=== PATIENT | male | born 1980 | race African-American/Black ===

== ENCOUNTER 2016-11-20 08:32 | Emergency (ER) | payer MEDICARE, MEDICAID ==
[~2016-11-20] VITALS: Ht 180.3 cm; Wt 85.3 kg
[~2016-11-20 08:32] MED LIST: ADVAIR 100/501 PUFF1 INH; ALBUTEROL SULF8.5 GM INH; AZITHROMYCIN250 MG ORAL; PREDNISONE20 MG ORAL; PROAIR HFA8.5 GM INH
[2016-11-20] MEDS ORDERED: IBUPROFEN800 MG ORAL (09:15)
[2016-11-20] MEDS ORDERED: ACETAMINOPHEN-1 EAC1 ORAL (09:15)
[2016-11-20 09:25] VITALS: BP 155/95
--- NOTE | 2016-11-20 09:33 | Emergency Room Report ---
History of Present Illness General Chief Complaint: Sore Throat Source: Patient Present Illness HPI 36YOM with 5 days dry cough, sore throat. +asthmatic. Using nebulizer as needed for cough with improvement. Denies chest pain, SOB, fever/chills. Denies painful swallowing, throat only hurts with coughing. Allergies: Coded Allergies: No Known Allergies (Unverified , 05/14/16) Patient History Past Medical History: asthma Past Surgical History: none Pertinent Family History: none Social History: Denies: alcohol use, drug use, smoking Immunizations: UTD Reviewed Nursing Documentation: PMH: Agreed, PSxH: Agreed Nursing Documentation-PMH Past Medical History: No History, Except For Hx Asthma: Yes Review of Systems All Other Systems: negative except mentioned in HPI Physical Exam Vital Signs Date Time Temp Pulse Resp B/P Pulse Ox O2 Delivery O2 Flow Rate FiO2 11/20/16 08:44 98.8 112 14 151/82 99 Room Air Sp02 EP Interpretation: reviewed, normal General Appearance: normal inspection, well appearing, no apparent distress, alert, GCS 15, non-toxic Head: normocephalic, atraumatic Eyes: bilateral eye EOMI, bilateral eye PERRL ENT: normal ENT inspection, hearing grossly normal, normal pharynx, no angioedema, normal voice, TMs + canals normal, uvula midline, other - No exudate or erythema Neck: normal inspection, full range of motion, supple, no bony tend Respiratory: normal inspection, lungs clear, normal breath sounds, no respiratory distress, no retraction, no wheezing Cardiovascular #1: regular rate, rhythm, no edema Gastrointestinal: normal inspection, normal bowel sounds, non tender, soft, no guarding, no hernia Genitourinary: no CVA tenderness Musculoskeletal: normal inspection, back normal, normal range of motion, Marylin' s Sign negative Neurologic: normal inspection, alert, oriented x3, responsive, telephone surveyor III-XII nml as tested, motor strength/tone normal, speech normal Psychiatric: normal inspection, judgement/insight normal, mood/affect normal Skin: normal inspection, normal color, no rash Medical Decision Making Diagnostic Impression: Primary Impression: Upper respiratory infection Qualified Codes: J06.9 - Acute upper respiratory infection, unspecified; B97.89 - Other viral agents as the cause of diseases classified elsewhere ER Course 36YOM with URI symptoms. VSS. Afebrile No obvious source of bacterial infection in oropharynx, ears, lungs, skin, abdomen on exam Well appearing Advised supportive treatment PMD followup DC home Understands to return for worsening symptoms - Use albuterol and T#3 as needed for cough, body aches, also Ibuprofen - Follow up with your primary care doctor in 2-3 days Last Vital Signs Date Time Temp Pulse Resp B/P Pulse Ox O2 Delivery O2 Flow Rate FiO2 11/20/16 08:44 98.8 112 14 151/82 99 Room Air Status: improved Disposition: HOME, SELF-CARE Condition: Improved Scripts Acetaminophen With Codeine (T#3) (TYLENOL #3 TAB*) Y Tab 1 TAB ORAL QHS Y for For Cough, #30 TAB Prov: JOYA SAENZ M.D. 11/20/16 Ibuprofen* (MOTRIN*) 800 Mg Tablet 800 MG ORAL THREE TIMES A DAY for For Pain, #30 TAB 0 Refills Prov: JOYA SAENZ M.D. 11/20/16 Referrals: NOT CHOSEN IPA/,REFERRING (PCP) Patient Instructions: Upper Respiratory Infection, Adult, Xxez-[id number] Additional Instructions: - Take ibuprofen every 8 hours as needed for sore thoat - Take Tylenol #3 at night for cough, pain, sleep JOYA SAENZ M.D. Nov 20, 2016 09:33
== END 2016-11-20 09:25 | disposition home or self-care (01) ==
LOC: EMR 09:12
DX: J06.9 Acute upper respiratory infection, unspecified (principal); J45.909 Unspecified asthma, uncomplicated
CPT/HCPCS: 99284

== ENCOUNTER 2016-11-26 08:33 | Emergency (ER) | payer MEDICARE, MEDICAID ==
[~2016-11-26] VITALS: Ht 177.8 cm; Wt 85.3 kg
[~2016-11-26 08:33] MED LIST changes: +ACETAMINOPHEN-1 EAC1 ORAL; +IBUPROFEN800 MG ORAL
--- NOTE | 2016-11-26 10:25 | Emergency Room Report ---
History of Present Illness General Chief Complaint: Pain Source: Patient, Medical Record Present Illness HPI This patient states that he has had a sore throat for about one week. He states that he has had pain in his right ear radiating to his right jaw. He denies fever or chills. He has had some coughing. He denies nausea or vomiting. He denies chest pain. He has no other complaints. Allergies: Coded Allergies: No Known Allergies (Unverified , 05/14/16) Patient History Past Medical History: see triage record, asthma Social History: Reports: smoking, Denies: alcohol use, drug use Reviewed Nursing Documentation: PMH: Agreed, PSxH: Agreed Nursing Documentation-PMH Past Medical History: No History, Except For Hx Asthma: Yes Review of Systems All Other Systems: negative except mentioned in HPI Physical Exam Vital Signs Date Time Temp Pulse Resp B/P Pulse Ox O2 Delivery O2 Flow Rate FiO2 11/26/16 08:44 98.4 73 16 148/93 97 Room Air Sp02 EP Interpretation: reviewed, normal General Appearance: no apparent distress, alert, GCS 15, non-toxic Head: normocephalic, atraumatic Eyes: bilateral eye PERRL, bilateral eye normal inspection ENT: hearing grossly normal, normal pharynx, no angioedema, normal voice, TMs + canals normal, uvula midline, moist mucus membranes Neck: full range of motion, supple/symm/no masses, other - Bilateral mild anterior CHET Respiratory: chest non-tender, lungs clear, normal breath sounds, speaking full sentences Cardiovascular #1: regular rate, rhythm, no edema Gastrointestinal: normal bowel sounds, non tender, soft, non-distended, no guarding, no rebound Rectal: deferred Musculoskeletal: back normal, gait/station normal, normal range of motion, non- tender Neurologic: alert, oriented x3, responsive, motor strength/tone normal, sensory intact, speech normal Psychiatric: judgement/insight normal, memory normal, mood/affect normal, no suicidal/homicidal ideation Skin: normal color, no rash, warm/dry, well hydrated Medical Decision Making Diagnostic Impression: Primary Impression: Upper respiratory infection Additional Impressions: Asthma exacerbation Lymphadenopathy, cervical ER Course This patient has a clinical presentation consistent with pharyngitis. Physical exam is consistent with a viral etiology. There is no evidence of peritonsillar abscess or deep neck abscess. There is no airway edema. Overall , this patient had a very benign examination. The patient only needs supportive care. The patient is instructed to get prpr-xez-rwofivy lozenges. Patient already has Motrin and acetaminophen. Patient has a history of asthma and has a terrible cough, although, it there is no wheezing on physical exam I will go ahead and give a burst of steroids. The patient states that he has a nebulizer machine complaining of albuterol at home. The patient was given return precautions and followup instructions. Chest X-Ray Diagnostic Results EP Interpretation: Yes Findings: no consolidation, no effusion, no pneumothorax, no acute cardiopulmonary disease Number of Views: 1 Last Vital Signs Date Time Temp Pulse Resp B/P Pulse Ox O2 Delivery O2 Flow Rate FiO2 11/26/16 08:44 98.4 73 16 148/93 97 Room Air Disposition: HOME, SELF-CARE Condition: Stable Referrals: NON PHYSICIAN (PCP) DAVID MELENDREZ D.O. Nov 26, 2016 10:25
[2016-11-26] MEDS ORDERED: PREDNISONE20 MG ORAL (10:26)
[2016-11-26 11:31] VITALS: BP 122/72
--- NOTE | 2016-11-26 12:10 | Diagnostic Imaging Report ---
Indication: COUGH Technique: One view of the chest Comparison: none Findings: Lungs and pleural spaces are clear. Heart size is normal. Impression: No acute process
== END 2016-11-26 11:33 | disposition home or self-care (01) ==
LOC: EMR 09:36
DX: R59.0 Localized enlarged lymph nodes (principal); J06.9 Acute upper respiratory infection, unspecified; J45.901 Unspecified asthma with (acute) exacerbation
CPT/HCPCS: 71010; 99283

== ENCOUNTER 2017-05-23 06:37 | Inpatient (IN) | payer MEDICARE, MEDICAID ==
[~2017-05-23] VITALS: Ht 180.3 cm; Wt 85.3 kg
--- NOTE | 2017-05-23 06:50 | Emergency Room Report ---
History of Present Illness General Chief Complaint: Dyspnea/Respdistress Source: Patient Present Illness HPI Patient presents with dyspnea wheezing. He has been ill for 3 weeks. He was seen Thursday at [facility] where a chest x-ray done at [facility] was ordered. He is coughing up white phlegm at this time. He's got short of breath and has some chest pain radiating to his right shoulder. His has been using an inhaler. He still is quite short of breath when he walks. This is one of the worst attacks he has had. He has never been admitted to the hospital here. He has used prednisone in the past. The patient denies any nausea vomiting diarrhea dysuria. No skin rashes. He still smokes. Allergies: Coded Allergies: No Known Allergies (Unverified , 05/14/16) Patient History Past Medical History: see triage record Social History: Reports: smoking Social History Narrative from home Reviewed Nursing Documentation: PMH: Agreed, PSxH: Agreed Nursing Documentation-PMH Hx Asthma: Yes Review of Systems All Other Systems: negative except mentioned in HPI Physical Exam Vital Signs Date Time Temp Pulse Resp B/P (MAP) Pulse Ox O2 Delivery O2 Flow Rate FiO2 05/23/17 06:39 99.1 116 22 160/111 88 Sp02 EP Interpretation: normal, abnormal - low as interpreted by me General Appearance: well appearing, GCS 15, mild distress, other Head: normocephalic Eyes: bilateral eye normal inspection, bilateral eye PERRL ENT: moist mucus membranes Neck: supple Respiratory: no retraction, wheezing, expiration, inspiration Cardiovascular #1: tachycardia Cardiovascular #2: 2+ radial (R) Gastrointestinal: normal inspection, normal bowel sounds, non tender, no mass, non-distended Musculoskeletal: back normal, gait/station normal, normal range of motion Neurologic: alert, oriented x3, motor strength/tone normal, DTRs symmetric, sensory intact Psychiatric: anxious Skin: normal inspection, warm/dry Procedures Critical Care Time Critical Care Time Total Critical Care Time: 60 min bedside evaluation and treatment excludes procedures (EKG). Reason for critical care: status asthmaticus, hypoxia Possible complications: hypotension, hypertension, PR, shock, arrhythmias, metabolic acidosis, end organ damage, respiratory failure. Interventions: albuterol, atrovent, solumedrol, levaquin, magnesium, epinephrine , repeat tx discussion with admitting MD Course: Patient with hypoxia and wheezing. Aggressive treatment with some improvement. Then some worsening. Epi and magnesium with repeated treatments with improvement again, but still hypoxia. Discussed with family. Discussed with admitting MD. Improved but still serious. Consultations: nursing staff, family, PMD, respiratory Performed by: Dr. Leal Tolerated well condition = serious Medical Decision Making Diagnostic Impression: Primary Impression: Status asthmaticus Qualified Codes: J45.52 - Severe persistent asthma with status asthmaticus Additional Impressions: Hypoxia Eosinophilia ER Course Patient presents with respiratory distress wheezing and hypoxia. Differential includes pneumonia, exacerbation of asthma, pulmonary embolus amongst others. Please evaluated with EKG, chest x-ray and labs. Blood cultures will be obtained. Also antibiotics will be started. Will be given Solu-Medrol and breathing treatments. His magnesium will be checked. CXR without infiltrate. EKG and labs unremarkable except for eosinphilia which suggests steroid responsiveness. Improved, but still wheezing. Family worried. Discussed expected course and cause with them. Worsened some. Pursed lip breathing and increased work. Epi and magnesium given. Needing more tx. Repeat albuterol ordered. (Consideration of BIPAP) Improved Admit OZ Dr. Ye. Dr. Ye examined the patient in the ED. Laboratory Tests Test 05/23/17 07:00 White Blood Count 11.1 K/UL (4.8-10.8) H Red Blood Count 4.70 M/UL (4.70-6.10) Hemoglobin 16.0 G/DL (14.2-18.0) Hematocrit 46.0 % (42.0-52.0) Mean Corpuscular Volume 98 FL (80-99) Mean Corpuscular Hemoglobin 34.1 PG (27.0-31.0) H Mean Corpuscular Hemoglobin Concent 34.8 G/DL (32.0-36.0) Red Cell Distribution Width 11.5 % (11.6-14.8) L Platelet Count 214 K/UL (150-450) Mean Platelet Volume 8.9 FL (6.5-10.1) Neutrophils (%) (Auto) 73.5 % (45.0-75.0) Lymphocytes (%) (Auto) 8.6 % (20.0-45.0) L Monocytes (%) (Auto) 9.4 % (1.0-10.0) Eosinophils (%) (Auto) 7.4 % (0.0-3.0) H Basophils (%) (Auto) 1.1 % (0.0-2.0) Prothrombin Time 10.1 SEC (9.30-11.50) Prothrombin Time INR 1.0 (0.9-1.1) PTT 30 SEC (23-33) Sodium Level 140 mEQ/L (135-145) Potassium Level 3.9 mEQ/L (3.4-4.9) Chloride Level 97 mEQ/L (98-107) L Carbon Dioxide Level 30 mEQ/L (20-30) Anion Gap 13 (5-15) Blood Urea Nitrogen 5 mg/dL (7-23) L Creatinine 1.1 mg/dL (0.7-1.2) Estimate Glomerular Filtration Rate > 60 mL/min (>60) Glucose Level 123 mg/dL (74-106) H Lactic Acid Level 1.20 mmol/L (0.66-2.22) Calcium Level 10.3 mg/dL (8.6-10.2) H Magnesium Level 1.9 mg/dL (1.7-2.5) Total Bilirubin 1.3 mg/dL (0.0-1.2) H Direct Bilirubin 0.3 mg/dL (0.1-0.3) Aspartate Amino Transferase (AST) 18 U/L (5-40) Alanine Aminotransferase (ALT) 22 U/L (3-41) Alkaline Phosphatase 76 U/L (40-129) Total Creatine Kinase 182 U/L (38-174) H Pro-B-Type Natriuretic Peptide 31 pg/mL (0-125) Total Protein 8.1 g/dL (6.6-8.7) Albumin 4.7 g/dL (3.5-5.2) Globulin 3.4 g/dL Albumin/Globulin Ratio 1.3 (1.0-2.7) EKG Diagnostic Results Rate: tachycardiac ST Segments: no acute changes - R axis Rhythm Strip Diag. Results EP Interpretation: yes Rhythm: no PVC's, no ectopy, other - ST Chest X-Ray Diagnostic Results Chest X-Ray Diagnostic Results : Chest X-Ray Ordered: Yes # of Views/Limited/Complete: 1 View Indication: Shortness of Breath EP Interpretation: Yes Interpretation: no consolidation, no effusion, no pneumothorax, other - hyperaeration Impression: Other Electronically Signed by: Electronically signed by Brian Leal MD Last Vital Signs Date Time Temp Pulse Resp B/P (MAP) Pulse Ox O2 Delivery O2 Flow Rate FiO2 05/23/17 20:00 107 05/23/17 20:00 97.5 26 136/79 96 Nasal Cannula 3.0 05/23/17 19:49 32 Status: improved Disposition: ADMITTED INPATIENT Condition: Serious Brian Leal M.D. May 23, 2017 06:50
[2017-05-23] MEDS ORDERED: Solu-MEDROL 125mg Inj IVP ONE (07:00)
[2017-05-23] MEDS ORDERED: cefTRIAXone 1 GM in NS 55 ML IV SCH (07:00)
[2017-05-23] MEDS ORDERED: Ipratropium 0.02% Inh Soln 2.5ml UD HHN ONE (07:00)
[2017-05-23] MEDS ORDERED: Tubing IV Cassette IV ONE (07:07)
[2017-05-23 07:20] LABS: BASOPHILS % (AUTO) 1.1 % (0.0-2.0); EOSINOPHILS % (AUTO) 7.4 % (0.0-3.0); LYMPHOCYTES % (AUTO) 8.6 % (20.0-45.0); MEAN CORPUSCULAR HEMOGLOBIN 34.1 PG (27.0-31.0); MEAN CORPUSCULAR HGB CONC 34.8 G/DL (32.0-36.0); MEAN CORPUSCULAR VOLUME 98 FL (80-99); MEAN PLATELET VOLUME 8.9 FL (6.5-10.1); MONOCYTES % (AUTO) 9.4 % (1.0-10.0); NEUTROPHILS % (AUTO) 73.5 % (45.0-75.0); PLATELET COUNT 214 K/UL (150-450); RED CELL DISTRIBUTION WIDTH 11.5 % (11.6-14.8); WHITE BLOOD COUNT 11.1 K/UL (4.8-10.8)
[2017-05-23] MEDS: Albuterol ud Inhalation HHN SCH ×4 (07:26→10:30)
[2017-05-23 07:32] LABS: ALANINE AMINOTRANSFERASE 22 U/L (3-41); ALBUMIN/GLOBULIN RATIO 1.3 (1.0-2.7); ANION GAP 13 (5-15); ASPARTATE AMINO TRANSFERASE 18 U/L (5-40); CALCIUM 10.3 mg/dL (8.6-10.2); CARBON DIOXIDE 30 mEQ/L (20-30); CHLORIDE 97 mEQ/L (98-107); CREATININE 1.1 mg/dL (0.7-1.2); GLOMERULAR FILTRATION RATE > 60 mL/min (>60); HEMOLYSIS 4; POTASSIUM 3.9 mEQ/L (3.4-4.9); SODIUM 140 mEQ/L (135-145); TOTAL PROTEIN 8.1 g/dL (6.6-8.7)
[2017-05-23 07:34] VITALS: BP 145/90
[2017-05-23 07:37] LABS: PROTHROMBIN TIME 10.1 SEC (9.30-11.50)
[2017-05-23 07:54] LABS: BILIRUBIN,DIRECT 0.3 mg/dL (0.1-0.3)
[2017-05-23] MEDS ORDERED: EPINEPHrine 1mg/1ml Amp IM ONE (08:30)
--- NOTE | 2017-05-23 08:46 | Diagnostic Imaging Report ---
Indication: DYSPNEA Technique: XRAY CHEST 1 V. Comparison: 11/26/2016 Findings: The cardiomediastinal silhouette is stable. There are no acute infiltrates. Impression: No acute abnormality. .
[2017-05-23 09:03] VITALS: BP 155/96
[2017-05-23] MEDS ORDERED: Tylenol #3 tab (300mg/30mg) ORAL PRN (09:15)
[2017-05-23] MEDS: DuoNeb 0.5-3(2.5)mg/3ml neb HHN SCH ×4 (11:00→22:51)
[2017-05-23] MEDS: Heparin 5000 units/ml inj SUBQ SCH ×2 (11:03→21:04)
[2017-05-23 11:14] VITALS: BP 151/95
[2017-05-23] MEDS: Solu-MEDROL 125mg Inj IVP SCH ×2 (14:01→21:05)
[2017-05-23 15:48] VITALS: BP 141/98
--- NOTE | 2017-05-23 19:30 | History and Physical Report ---
DATE OF ADMISSION: 05/23/2017 CHIEF COMPLAINT: Asthma exacerbation. HISTORY OF PRESENT ILLNESS: The patient is a 37-year-old male. He has a longstanding history of asthma and hypertensive heart disease, who presented with complaints of several weeks of progressive shortness of breath. He has been using his nebulizer at home without any improvement. He presented to the emergency room. He was noted to have diffuse wheezing. He was hypoxic and short of breath. He received multiple medications as well as intravenous steroids. He had some improvement, but not enough to send him home. The patient denies any fevers or chills. Denies any ill contacts. PAST MEDICAL HISTORY: As above. PAST SURGICAL HISTORY: Includes an exploratory laparotomy. CURRENT MEDICATIONS: Reconciled and reviewed. ALLERGIES: None. FAMILY HISTORY: Significant for asthma. SOCIAL HISTORY: The patient is a smoker. No alcohol. No drugs. REVIEW OF SYSTEMS: General: No fever or chills. HEENT: No headaches or visual changes. Cardiopulmonary: Positive shortness of breath and tightness. Gastrointestinal: No nausea or vomiting. Genitourinary: No urgency or frequency. Musculoskeletal: No joint pain or swelling. Neurologic: No evidence of seizures. PHYSICAL EXAMINATION: VITAL SIGNS: Temperature 98 degrees, blood pressure 145/90, pulse 110, and respirations 29. GENERAL: The patient is a well-developed male, in no apparent distress. He is able to speak in full sentences. NECK: Supple. There is no jugular venous distention. HEART: Regular rate and rhythm. LUNGS: Show some diffuse wheezes with moderate to poor air movement. ABDOMEN: Soft, nontender, and nondistended. EXTREMITIES: Without clubbing, cyanosis, or edema. LABORATORY AND DIAGNOSTIC DATA: Coags normal, white count 11, creatinine was 1.1. Chest x-ray is clear. ASSESSMENT: This is a pleasant male admitted with severe asthma exacerbation and plus history of hypertension. PLAN: Intravenous steroids, respiratory treatments, oral antibiotics, Pulmonary consultation, DVT and stress ulcer prophylaxis. Harlan Ye M.D. DR: NICOLASA JOB#: [id number] CC:
[2017-05-23 20:00] VITALS: BP 136/79
[2017-05-24] MEDS: DuoNeb 0.5-3(2.5)mg/3ml neb HHN SCH ×6 (03:21→23:00)
[2017-05-24] MEDS: Solu-MEDROL 125mg Inj IVP SCH ×2 (05:44→18:18)
[2017-05-24 08:00] VITALS: BP 166/89
[2017-05-24] MEDS ORDERED: Azithromycin 250mg tab ORAL SCH (09:00)
--- NOTE | 2017-05-24 09:34 | General Progress Note ---
Assessment/Plan Problem List: (1) Status asthmaticus ICD Codes: J45.902 - Unspecified asthma with status asthmaticus SNOMED: 279474295 Qualifiers: Qualified Codes: J45.52 - Severe persistent asthma with status asthmaticus (2) Hypoxia ICD Codes: R09.02 - Hypoxemia SNOMED: 615933203, [id number] Status: stable, progressing Assessment/Plan wean iv steroids pulm eval pending po abx possible dc on po steroids tomorrow if continued improvement Subjective ROS Limited/Unobtainable: No Constitutional: Reports: no symptoms HEENT: Reports: no symptoms Cardiovascular: Reports: no symptoms Respiratory: Reports: cough, shortness of breath, wheezing Gastrointestinal/Abdominal: Reports: no symptoms Genitourinary: Reports: no symptoms Neurologic/Psychiatric: Reports: no symptoms Endocrine: Reports: no symptoms Hematologic/Lymphatic: Reports: no symptoms Allergies: Coded Allergies: No Known Allergies (Unverified , 05/14/16) All Systems: reviewed and negative except above Subjective better. still with significant wheezing and sob though. Objective Last 24 Hour Vital Signs Date Time Temp Pulse Resp B/P (MAP) Pulse Ox O2 Delivery O2 Flow Rate FiO2 05/24/17 08:00 97.2 92 20 166/89 97 Nasal Cannula 3.0 05/24/17 07:51 91 17 98 Nasal Cannula 2.0 05/24/17 07:41 93 18 98 Nasal Cannula 3.0 05/24/17 04:00 96 05/24/17 03:29 92 20 97 Nasal Cannula 3.0 32 05/24/17 03:20 99 18 95 Nasal Cannula 3.0 32 05/24/17 00:00 99 05/23/17 22:59 88 18 98 Nasal Cannula 3.0 32 05/23/17 22:51 101 18 96 Nasal Cannula 3.0 32 05/23/17 20:00 107 05/23/17 20:00 97.5 103 26 136/79 96 Nasal Cannula 3.0 05/23/17 19:49 91 20 98 Nasal Cannula 3.0 32 05/23/17 19:41 100 20 95 Nasal Cannula 3.0 32 05/23/17 16:00 102 05/23/17 15:48 97.0 104 24 141/98 95 Nasal Cannula 3.0 05/23/17 14:41 98 20 97 Nasal Cannula 3.0 05/23/17 14:31 96 20 95 Nasal Cannula 3.0 05/23/17 12:00 112 05/23/17 11:14 97.2 114 24 151/95 95 Nasal Cannula 3.0 05/23/17 11:12 114 24 95 Nasal Cannula 3.0 05/23/17 11:02 114 26 96 Nasal Cannula 3.0 05/23/17 10:23 117 28 97 Nasal Cannula 3.0 05/23/17 10:00 112 31 97 Nasal Cannula 3.0 05/23/17 09:46 102 27 145/86 96 Nasal Cannula 2.0 Height (Feet): 5 Height (Inches): 11.00 Weight (Pounds): 188 General Appearance: WD/WN, alert Neck: supple Cardiovascular: regular rhythm Respiratory/Chest: expiratory wheezing Abdomen: normal bowel sounds, non tender, soft, no organomegaly Edema: no edema noted Arm (L), no edema noted Arm (R), no edema noted Leg (L), no edema noted Leg (R), no edema noted Pedal (L), no edema noted Pedal (R), no edema noted Generalized TYRELL BINGHAM May 24, 2017 09:34
[2017-05-24] MEDS: Heparin 5000 units/ml inj SUBQ SCH ×2 (10:02→22:45)
[2017-05-24 12:00] VITALS: BP 118/72
--- NOTE | 2017-05-24 12:15 | Consultation ---
Consult Note Consult Note HISTORY OF PRESENT ILLNESS: The patient is a 37-year-old male with longstanding history of asthma with progressive shortness of breath. He has been using his nebulizer at home without any improvement. He presented to the emergency room and required admission. He was noted to have diffuse wheezing and chest tightness. He was hypoxic and short of breath. He received nebulized therapy and intravenous steroids. Patient admitted for acute management and I was asked to assist with his pulmonary management. The patient denies any fevers or chills. Denies any ill contacts. PAST MEDICAL HISTORY: Asthma and Hypertension. PAST SURGICAL HISTORY: Includes an exploratory laparotomy. CURRENT MEDICATIONS: Reconciled and reviewed. ALLERGIES: None. FAMILY HISTORY: Significant for asthma. SOCIAL HISTORY: The patient is a smoker. No alcohol. No drugs. disabled REVIEW OF SYSTEMS: all reviewed and otherwise negative PHYSICAL EXAMINATION: VITAL SIGNS: Temperature 98 degrees, blood pressure 135/84, pulse 88, and respirations 20. GENERAL: The patient is a well-developed male, in no apparent distress. awake and alert NECK: Supple. There is no jugular venous distention. HEART: Regular rate and rhythm.without MRG LUNGS: Scattered wheezes with moderate to poor air movement. ABDOMEN: Soft, nontender, and nondistended. no HSM EXTREMITIES: Without clubbing, cyanosis, or edema. LABORATORY AND DIAGNOSTIC DATA: Labs Test 05/23/17 07:00 White Blood Count 11.1 K/UL (4.8-10.8) Red Blood Count 4.70 M/UL (4.70-6.10) Hemoglobin 16.0 G/DL (14.2-18.0) Hematocrit 46.0 % (42.0-52.0) Mean Corpuscular Volume 98 FL (80-99) Mean Corpuscular Hemoglobin 34.1 PG (27.0-31.0) Mean Corpuscular Hemoglobin Concent 34.8 G/DL (32.0-36.0) Red Cell Distribution Width 11.5 % (11.6-14.8) Platelet Count 214 K/UL (150-450) Mean Platelet Volume 8.9 FL (6.5-10.1) Neutrophils (%) (Auto) 73.5 % (45.0-75.0) Lymphocytes (%) (Auto) 8.6 % (20.0-45.0) Monocytes (%) (Auto) 9.4 % (1.0-10.0) Eosinophils (%) (Auto) 7.4 % (0.0-3.0) Basophils (%) (Auto) 1.1 % (0.0-2.0) Prothrombin Time 10.1 SEC (9.30-11.50) Prothromb Time International Ratio 1.0 (0.9-1.1) Activated Partial Thromboplast Time 30 SEC (23-33) Sodium Level 140 mEQ/L (135-145) Potassium Level 3.9 mEQ/L (3.4-4.9) Chloride Level 97 mEQ/L (98-107) Carbon Dioxide Level 30 mEQ/L (20-30) Anion Gap 13 (5-15) Blood Urea Nitrogen 5 mg/dL (7-23) Creatinine 1.1 mg/dL (0.7-1.2) Estimat Glomerular Filtration Rate > 60 mL/min (>60) Glucose Level 123 mg/dL (74-106) Lactic Acid Level 1.20 mmol/L (0.66-2.22) Calcium Level 10.3 mg/dL (8.6-10.2) Magnesium Level 1.9 mg/dL (1.7-2.5) Total Bilirubin 1.3 mg/dL (0.0-1.2) Direct Bilirubin 0.3 mg/dL (0.1-0.3) Aspartate Amino Transf (AST/SGOT) 18 U/L (5-40) Alanine Aminotransferase (ALT/SGPT) 22 U/L (3-41) Alkaline Phosphatase 76 U/L (40-129) Total Creatine Kinase 182 U/L (38-174) Pro-B-Type Natriuretic Peptide 31 pg/mL (0-125) Total Protein 8.1 g/dL (6.6-8.7) Albumin 4.7 g/dL (3.5-5.2) Globulin 3.4 g/dL Albumin/Globulin Ratio 1.3 (1.0-2.7) ASSESSMENT: Asthma exacerbation shortness of breath hypertension acute bronchospasm PLAN: care noted IV antibiotics as is respiratory care supportive care as outlined IV steroids oxygen therapy dc planning with outpatient followup impression, plan, and exam edited and reviewed in detail care discussed with YUSRA SOLIZ May 24, 2017 12:14
[2017-05-24 16:00] VITALS: BP 124/67
[2017-05-24] MEDS ORDERED: Solu-MEDROL 125mg Inj IVP SCH (18:00)
[2017-05-24 20:00] VITALS: BP 134/77
[2017-05-25] VITALS (7 sets, daily range): BP systolic 115–139; BP diastolic 75–91
[2017-05-25] MEDS: DuoNeb 0.5-3(2.5)mg/3ml neb HHN SCH ×6 (03:00→23:25)
--- NOTE | 2017-05-25 05:15 | Progress Note ---
DATE: 05/24/2017 CARDIOLOGY PROGRESS NOTE SUBJECTIVE: The patient has less shortness of breath. Today, he is still with wheezing. No chest pain. OBJECTIVE: VITAL SIGNS: Blood pressure 151/95, heart rate 114, respiratory rate 24, and afebrile. NECK: Supple. LUNGS: With diminished breath sounds and scattered expiratory wheezes, but a better air entry. CARDIAC: Regular rhythm. Rapid rate. Normal S1 and S2. Monitored rhythm sinus and sinus tachycardia. ABDOMEN: Soft. EXTREMITIES: No edema. IMPRESSION: 1. Acute bronchospasm. 2. Asthma exacerbation. 3. Secondary sinus tachycardia. 4. Hypertension poorly controlled. PLAN: 1. Add Cardizem for blood pressure control and heart rate management. 2. Cautious use of beta-agonist. Brian Dickson M.D. DR: KARON JOB#: [id number] CC:
--- NOTE | 2017-05-25 05:15 | Consultation ---
DATE OF CONSULTATION: 05/23/2017 CARDIOLOGY CONSULTATION REASON FOR CONSULTATION: Tachycardia and chest pain. HISTORY OF PRESENT ILLNESS: This is a 37-year-old male with history of hypertension and asthma. He has had several weeks of progressive shortness of breath. He has had used his nebulizer with increasing frequency and has not improved. He was seen in the emergency room and noted to have diffuse bronchospasm, hypoxia, and tachypnea as well as tachycardia. PAST MEDICAL HISTORY: As noted above. He has also had exploratory laparotomy. MEDICATIONS: Prior to admission, reviewed and reconciled. ALLERGIES: None. FAMILY HISTORY: Notable for asthma. SOCIAL HISTORY: He is an active smoker, a 20 pack years. No alcohol or substance abuse. REVIEW OF SYSTEMS: No history of irregular heartbeats, rheumatic heart disease, endocarditis or pericarditis. No history of blood clotting. No history of diabetes or thyroid disorder. He does have a history of hypertension. PHYSICAL EXAMINATION: VITAL SIGNS: Afebrile. Blood pressure 145/90, pulse 120, and respirations 29. GENERAL: He is able to speak in full sentences. NECK: Supple. There is no accessory muscle use. There is no Kussmaul sign. LUNGS: Reveal diffuse expiratory wheezes. CARDIAC: Regular rhythm. Rapid rate. Normal S1 and S2 with no murmur, rub or gallop. ABDOMEN: Soft and nontender. EXTREMITIES: Without edema. LABORATORY AND DIAGNOSTIC DATA: Chest x-ray with no acute process. EKG reveals sinus tachycardia with no acute abnormalities. Labs are reviewed. IMPRESSION: 1. Acute bronchospasm. 2. Asthma exacerbation. 3. Pleuritic chest pain. 4. Secondary sinus tachycardia exacerbated by beta agonist use. 5. History of hypertension with mild blood pressure elevation. 6. Hypoxia. PLAN: 1. Cardiac monitoring. 2. Nasal oxygen. 3. Inhaled bronchodilators. 4. Intravenous steroids. 5. DVT prophylaxis. 6. No antiarrhythmic therapy at this time. 7. Avoid beta-rambo therapy. Consider diltiazem for blood pressure management in the future. Echocardiogram to evaluate PA systolic pressure. Brian Dickson M.D. DR: TIAN JOB#: [id number] CC:
--- NOTE | 2017-05-25 08:42 | Pulmonology Progress Note ---
Assessment/Plan Assessment/Plan ASSESSMENT: Asthma exacerbation shortness of breath hypertension acute bronchospasm PLAN: care noted IV antibiotics as is respiratory care supportive care as outlined IV steroids--no taper yet oxygen therapy dc planning with outpatient followup as patient will require close monitoring and may be a candidate for anti IGE or eosinophil therapy impression, plan, and exam edited and reviewed in detail care discussed with RN Subjective Allergies: Coded Allergies: No Known Allergies (Unverified , 05/14/16) Subjective still with chest tightness difficulty mobilizing thick secretions and wheeze Objective Last 24 Hour Vital Signs Date Time Temp Pulse Resp B/P (MAP) Pulse Ox O2 Delivery O2 Flow Rate FiO2 05/25/17 08:03 71 18 99 Nasal Cannula 2.0 28 05/25/17 08:00 68 18 99 Nasal Cannula 2.0 28 05/25/17 04:00 97.7 83 21 138/91 97 Room Air 05/25/17 03:03 Nasal Cannula 2.0 28 05/25/17 03:03 Nasal Cannula 2.0 28 05/25/17 00:00 97.9 76 21 139/84 94 Room Air 05/24/17 23:14 Nasal Cannula 2.0 28 05/24/17 23:13 Nasal Cannula 2.0 28 05/24/17 20:00 98.6 85 22 134/77 92 Nasal Cannula 2.0 05/24/17 19:40 85 20 98 Room Air 21 05/24/17 19:30 80 20 97 Room Air 21 05/24/17 16:00 97.8 97 19 124/67 96 Nasal Cannula 2.0 05/24/17 16:00 108 05/24/17 15:08 89 18 98 Nasal Cannula 2.0 05/24/17 14:59 95 18 96 Room Air 05/24/17 12:00 97 05/24/17 12:00 97.7 99 20 118/72 95 Nasal Cannula 3.0 05/24/17 11:17 88 18 98 Nasal Cannula 2.0 05/24/17 11:11 86 18 98 Nasal Cannula 2.0 Objective WDWN NAD reduced breath sounds bilaterally with diffuse wheeze [id number] without MRG NABS nontender no HSM no CCE nonfocal awake and alert Microbiology Date/Time Source Procedure Growth Status 05/23/17 07:00 Blood Blood Culture - Preliminary NO GROWTH AFTER 24 HOURS Resulted 05/23/17 06:45 Blood Blood Culture - Preliminary NO GROWTH AFTER 24 HOURS Resulted Current Medications Medications (Trade) Dose Ordered Sig/Wojciech Route PRN Reason Start Time Stop Time Status Last Admin Dose Admin Albuterol/ Ipratropium (DuoNeb 0.5-3(2.5)mg/3ml) 3 ml Q4HRT HHN 05/24/17 19:00 05/28/17 10:59 05/25/17 08:01 Azithromycin (Zithromax) 250 mg DAILY ORAL 05/25/17 09:00 05/31/17 08:59 Heparin Sodium (Porcine) (Heparin 5000 units/ml) 5,000 units EVERY 12 HOURS SUBQ 05/24/17 21:00 06/22/17 09:59 05/24/17 22:45 Methylprednisolone Sodium Succinate (Solu-MEDROL) 60 mg BID IVP 05/24/17 18:30 06/22/17 18:29 05/24/17 18:18 Pantoprazole (Protonix) 40 mg DAILY ORAL 05/25/17 09:00 06/22/17 09:14 YUSRA ANDINO May 25, 2017 08:42
--- NOTE | 2017-05-25 09:04 | General Progress Note ---
Assessment/Plan Problem List: (1) Status asthmaticus ICD Codes: J45.902 - Unspecified asthma with status asthmaticus SNOMED: 451249613 Qualifiers: Qualified Codes: J45.52 - Severe persistent asthma with status asthmaticus (2) Hypoxia ICD Codes: R09.02 - Hypoxemia SNOMED: 883446556, 61055203 Status: stable, progressing Assessment/Plan iv steroids pulm eval apprecaited po abx cont resp rx not well enough for dc Subjective ROS Limited/Unobtainable: No Constitutional: Reports: malaise, weakness HEENT: Reports: no symptoms Cardiovascular: Reports: no symptoms Respiratory: Reports: cough, shortness of breath, wheezing Gastrointestinal/Abdominal: Reports: no symptoms Genitourinary: Reports: no symptoms Neurologic/Psychiatric: Reports: no symptoms Endocrine: Reports: no symptoms Hematologic/Lymphatic: Reports: no symptoms Allergies: Coded Allergies: No Known Allergies (Unverified , 05/14/16) All Systems: reviewed and negative except above Subjective better. still with significant wheezing and sob though. Objective Last 24 Hour Vital Signs Date Time Temp Pulse Resp B/P (MAP) Pulse Ox O2 Delivery O2 Flow Rate FiO2 05/25/17 08:03 71 18 99 Nasal Cannula 2.0 28 05/25/17 08:00 97.3 79 20 115/85 94 Nasal Cannula 2.0 05/25/17 08:00 68 18 99 Nasal Cannula 2.0 28 05/25/17 04:00 97.7 83 21 138/91 97 Room Air 05/25/17 03:03 Nasal Cannula 2.0 28 05/25/17 03:03 Nasal Cannula 2.0 05/25/17 00:00 97.9 76 21 139/84 94 Room Air 05/24/17 23:14 Nasal Cannula 2.0 28 05/24/17 23:13 Nasal Cannula 2.0 28 05/24/17 20:00 98.6 85 22 134/77 92 Nasal Cannula 2.0 05/24/17 19:40 85 20 98 Room Air 21 05/24/17 19:30 80 20 97 Room Air 05/24/17 16:00 97.8 97 19 124/67 96 Nasal Cannula 2.0 05/24/17 16:00 108 05/24/17 15:08 89 18 98 Nasal Cannula 2.0 05/24/17 14:59 95 18 96 Room Air 05/24/17 12:00 97 05/24/17 12:00 97.7 99 20 118/72 95 Nasal Cannula 3.0 05/24/17 11:17 88 18 98 Nasal Cannula 2.0 05/24/17 11:11 86 18 98 Nasal Cannula 2.0 Height (Feet): 5 Height (Inches): 11.00 Weight (Pounds): 188 Objective General Appearance: WD/WN, alert Neck: supple Cardiovascular: regular rhythm Respiratory/Chest: expiratory wheezing Abdomen: normal bowel sounds, non tender, soft, no organomegaly Edema: no edema noted Arm (L), no edema noted Arm (R), no edema noted Leg (L), no edema noted Leg (R), no edema noted Pedal (L), no edema noted Pedal (R), no edema noted Generalized TYRELL BINGHAM May 25, 2017 09:04
[2017-05-25] MEDS: Azithromycin 250mg tab ORAL SCH (09:14)
[2017-05-25] MEDS: Solu-MEDROL 125mg Inj IVP SCH ×2 (09:14→18:19)
[2017-05-25] MEDS: Heparin 5000 units/ml inj SUBQ SCH ×2 (09:18→21:00)
[2017-05-25] MEDS: Breo Ellipta 200/25mcg-14 dose INH SCH (10:00)
--- NOTE | 2017-05-25 16:20 | Physician Query ---
PLEASE COMPLETE THE FORM BEFORE SIGNING Dear Dr. Harlan Ye Date Sales And Service Associate/CDS EBONI Musa Sales And Service Associate/CDS Phone #: [phone] Exercise your independent professional judgment when responding to query. Questions asked do not imply particular answer is desired or expected. We greatly appreciate your clarification on this issue. Clinical Documentation States: "Presented with complaints of several weeks of progressive shortness of breath. He was hypoxic and short of breath" documented in the H/P of Dr. Harlan Ye. Clinical Findings Show: RR:_29,26,28,31,28/ min. Described as shallow, rapid, pursed lip and labored breathing. Please clarify if the patient had any of the following conditions based on the above clinical findings: []Respiratory Failure [] Acute [] Chronic (on home O2) []Acute on Chronic [] Acute Respiratory Distress [] Acute Respiratory Insufficiency [] Respiratory failure due to trauma [] Respiratory insufficiency due to trauma [] Unable to determine [] Other: Condition Present on Admission: [] Yes [] No []Clinically Undeterminable Please also document in your Progress Notes and/or Discharge Summary and indicate if the condition was present on admission. Harlan Ye MD Date/Time [facility]
[2017-05-25] MEDS ORDERED: Montelukast 10mg tablet ORAL SCH (16:30)
[2017-05-25] MEDS ORDERED: Norco 10mg/325mg tab ORAL PRN (18:00)
--- NOTE | 2017-05-25 18:38 | Cardiology Report ---
APPROVED REPORT EKG Measurement Heart [id number] CT 132P81 [id number] Sinus tachycardia Rightward axis Borderline ECG
[2017-05-26] VITALS: BP 132/76
[2017-05-26] MEDS: DuoNeb 0.5-3(2.5)mg/3ml neb HHN SCH ×2 (03:36→07:18)
[2017-05-26 04:00] VITALS: BP 143/91
[2017-05-26 08:00] VITALS: BP 143/83
[2017-05-26] MEDS: Azithromycin 250mg tab ORAL SCH (08:26)
[2017-05-26] MEDS: Solu-MEDROL 125mg Inj IVP SCH (08:26)
[2017-05-26] MEDS: Breo Ellipta 200/25mcg-14 dose INH SCH (08:27)
[2017-05-26] MEDS: Heparin 5000 units/ml inj SUBQ SCH (08:27)
--- NOTE | 2017-05-26 08:36 | Pulmonology Progress Note ---
Assessment/Plan Assessment/Plan ASSESSMENT: Asthma exacerbation shortness of breath hypertension acute bronchospasm PLAN: care noted IV antibiotics --->zpak respiratory care---> [id number] 1 puff daily and singulair; proair prn supportive care as outlined IV steroids--> prednisone taper oxygen therapy- may dc dc home ok per pulmonary outpatient followup in the office for PFT, allergy testing, and further intensification of therapy impression, plan, and exam edited and reviewed in detail care discussed with RN impression, plan, and exam edited and reviewed in detail care discussed with RN Subjective Allergies: Coded Allergies: No Known Allergies (Unverified , 05/14/16) Subjective reduced chest tightness reduced secretions and wheeze improved Objective Last 24 Hour Vital Signs Date Time Temp Pulse Resp B/P (MAP) Pulse Ox O2 Delivery O2 Flow Rate FiO2 05/26/17 07:26 94 18 99 Room Air 05/26/17 07:23 Room Air 05/26/17 07:15 81 18 94 Room Air 05/26/17 07:14 94 Room Air 05/26/17 04:00 97.5 82 19 143/91 97 Nasal Cannula 2.0 05/26/17 03:47 83 18 97 Nasal Cannula 2.0 05/26/17 03:36 79 20 97 Nasal Cannula 2.0 05/26/17 00:00 97.7 91 21 132/76 96 Room Air 05/25/17 23:38 84 20 98 Nasal Cannula 2.0 05/25/17 23:27 78 18 98 Nasal Cannula 2.0 05/25/17 20:00 97.6 71 21 117/80 96 Nasal Cannula 05/25/17 19:58 74 18 99 Nasal Cannula 2.0 05/25/17 19:50 98 Nasal Cannula 2.0 05/25/17 19:50 Nasal Cannula 2.0 05/25/17 19:48 72 18 98 Nasal Cannula 2.0 05/25/17 19:35 97.7 76 19 138/85 97 Nasal Cannula 2.0 05/25/17 16:43 97.7 78 128/78 98 Nasal Cannula 2.0 05/25/17 15:21 84 18 99 Nasal Cannula 2.0 05/25/17 15:20 74 18 98 Nasal Cannula 2.0 05/25/17 12:10 96.4 83 20 131/75 95 Nasal Cannula 2.0 05/25/17 11:29 81 18 99 Nasal Cannula 2.0 28 05/25/17 11:27 88 18 94 Nasal Cannula 2.0 28 Objective WDWN NAD improved breath sounds bilaterally with reduced wheeze [id number] without MRG NABS nontender no HSM no CCE nonfocal awake and alert Current Medications Medications (Trade) Dose Ordered Sig/Wojciech Route PRN Reason Start Time Stop Time Status Last Admin Dose Admin Acetaminophen (Tylenol) 650 mg Q4H PRN ORAL Mild Pain/Temp > 100.5 05/25/17 18:00 06/24/17 17:59 05/25/17 18:18 Acetaminophen/ Hydrocodone Bitart ([place] 10) 1 ea Q4H PRN ORAL PAIN 4-10 05/25/17 18:00 06/01/17 17:59 Albuterol/ Ipratropium (DuoNeb 0.5-3(2.5)mg/3ml) 3 ml Q4HRT HHN 05/24/17 19:00 05/28/17 10:59 05/26/17 07:18 Azithromycin (Zithromax) 250 mg DAILY ORAL 05/25/17 09:00 05/31/17 08:59 05/26/17 08:26 Fluticasone/ Vilanterol (Breo Ellipta 200/25) 1 puffs DAILY INH 05/25/17 10:00 06/24/17 09:59 Heparin Sodium (Porcine) (Heparin 5000 units/ml) 5,000 units EVERY 12 HOURS SUBQ 05/24/17 21:00 06/22/17 09:59 05/25/17 09:18 Methylprednisolone Sodium Succinate (Solu-MEDROL) 60 mg BID IVP 05/24/17 18:30 06/22/17 18:29 05/26/17 08:26 Montelukast Sodium (Singulair) 10 mg QPM ORAL 05/25/17 16:30 06/24/17 16:29 05/25/17 16:41 Pantoprazole (Protonix) 40 mg DAILY ORAL 05/25/17 09:00 06/22/17 09:14 05/26/17 08:26 YUSRA ANDINO May 26, 2017 08:36
[2017-05-26] MEDS ORDERED: MONTELUKAST SOD10 MG ORAL (09:07)
[2017-05-26] MEDS ORDERED: PREDNISONE10 M2 PO (09:07)
--- NOTE | 2017-05-27 12:40 | Discharge Summary ---
DATE OF ADMISSION: 05/23/2017 DATE OF DISCHARGE: 05/26/2017 ADMISSION DIAGNOSES: 1. Asthma exacerbation. 2. Bronchitis. DISCHARGE DIAGNOSES: 1. Asthma exacerbation. 2. Bronchitis. Hospital Course: The patient is a very pleasant male, admitted with complaints of severe asthma exacerbation. He received intravenous steroids, respiratory treatments around the clock, and oral antibiotic therapy. Pulmonary consultation was obtained. The patient improved with IV steroids. On discharge, he was doing well. He will be discharged on a steroid taper as well as additional inhalers. Discharge Medications: Please see discharge medication list for discharge medications. DIET: Regular diet. ACTIVITY: Ad-sedrick. Followup: The patient will follow up with the home hospice aide in one to two weeks. Harlan Ye M.D. DR: Nayeli JOB#: [id number] CC:
--- NOTE | 2017-05-27 12:40 | Progress Note ---
DATE: 05/25/2017 CARDIOLOGY PROGRESS NOTE Subjective: The patient is less short of breath. Palpitations have resolved. He still is not able to mobilize without feeling fatigued. OBJECTIVE: VITAL SIGNS: Blood pressure 115/85, pulse 79, and respirations 20. LUNGS: With expiratory wheezes. Cardiac: Regular rhythm and rate. Normal S1 and S2. No accessory muscle use. ABDOMEN: Soft. EXTREMITIES: No edema. IMPRESSION: 1. Acute bronchospasm. 2. Asthma exacerbation. 3. Pleuritic chest pain. 4. Sinus tachycardia, improving but still not at baseline. PLAN: 1. Continue pulmonary regimen. 2. No additional cardiovascular therapy presently indicated except maintaining adequate hydration. Brian Dickson M.D. DR: KARON JOB#: [id number] CC:
--- NOTE | 2017-05-27 12:40 | Progress Note ---
DATE: 05/26/2017 CARDIOLOGY PROGRESS NOTE Subjective: The patient feels less short of breath. His medication regimen has been reviewed. OBJECTIVE: Vital signs: Blood pressure is 143/91, pulse 82, and respirations 19. NECK: Supple. LUNGS: Clear. CARDIAC: Regular. Normal S1 and S2. ABDOMEN: Soft. EXTREMITIES: No edema. IMPRESSION: 1. Pleuritic chest pain, resolved. 2. Paroxysmal bronchospasm, improves. 3. Asthma exacerbation with recovering hypoxia, resolved. 4. Sinus tachycardia, recovered. Plan: Outpatient followup including echocardiogram to assess for pulmonary hypertension in the future. Brian Dickson M.D. DR: Amaris JOB#: [id number] CC:
--- NOTE | 2017-05-27 12:56 | Physician Query ---
PLEASE COMPLETE THE FORM BEFORE SIGNING Dear Dr. Bj Bingham Date Gas Manager/CDS _HAKAN Musa___ Gas Manager/CDS Phone #: _[phone] _ DEAR DR. BINGHAM, YOU SIGNED THE BELOW QUERY FROM 2016, BUT DID NOT ANSWER. PLEASE COMPLETE THE BELOW QUERY FORM BEFORE SIGNING Dear Dr. Harlan Bingham Date Gas Manager/CDS EBONI Musa Gas Manager/CDS Phone #: [phone] Exercise your independent professional judgment when responding to query. Questions asked do not imply particular answer is desired or expected. We greatly appreciate your clarification on this issue. Clinical Documentation States: "Presented with complaints of several weeks of progressive shortness of breath. He was hypoxic and short of breath" documented in the H/P of Dr. Harlan Bingham. Clinical Findings Show: RR:_29,26,28,31,28/ min. Described as shallow, rapid, pursed lip and labored breathing. Please clarify if the patient had any of the following conditions based on the above clinical findings: [x]Respiratory Failure [x] Acute [] Chronic (on home O2) []Acute on Chronic [] Acute Respiratory Distress [] Acute Respiratory Insufficiency [] Respiratory failure due to trauma [] Respiratory insufficiency due to trauma [] Unable to determine [] Other: Condition Present on Admission: [] Yes [] No []Clinically Undeterminable Please also document in your Progress Notes and/or Discharge Summary and indicate if the condition was present on admission. Harlan Bingham MD Date/Time [facility]
== END 2017-05-26 10:45 | disposition home or self-care (01) | DRG 202 ==
LOC: EMR 06:57 → 2E 07:20 → EDBEDREQ 08:54 → 4E 05-24 17:57
DX: J45.901 Unspecified asthma with (acute) exacerbation (principal); J96.01 Acute respiratory failure with hypoxia; I10 Essential (primary) hypertension; R07.81 Pleurodynia; R00.0 Tachycardia, unspecified; F17.200 Nicotine dependence, unspecified, uncomplicated; J40 Bronchitis, not specified as acute or chronic
CPT/HCPCS: 36415; 71010; 80053; 82248; 82550; 83605; 83735; 83880; 85025; 85610; 85730; 87040; 93005; 94640; 94664; 94760; 99291; J7620

== ENCOUNTER 2017-08-01 05:40 | Inpatient (IN) | payer MEDICARE, MEDICAID ==
[~2017-08-01] VITALS: Ht 177.8 cm; Wt 78.5 kg
[~2017-08-01 05:40] MED LIST changes: +MONTELUKAST SOD10 MG ORAL; +PREDNISONE10 M2 PO
[2017-08-01] MEDS ORDERED: BREO ELLIPTA 11 EACH IH (05:49)
[2017-08-01] MEDS ORDERED: Ipratropium 0.02% Inh Soln 2.5ml UD ONE (05:51)
[2017-08-01] MEDS ORDERED: Albuterol ud Inhalation ONE (05:51)
--- NOTE | 2017-08-01 05:55 | Emergency Room Report ---
History of Present Illness General Chief Complaint: Dyspnea/Respdistress Source: Patient (NOAH WEINER M.D.) Present Illness HPI This is a 37-year-old male with a history of asthma. He's been having trouble with his respiration and wheezing for the last week. Worse tonight after he smoked a cigarette. No fever or chills. Complaining of chest tightness because of his breathing. No nausea no vomiting. No fever or chills. Never been intubated before. Still has his inhaler but it is not helping. Worse with exertion. (NOAH WEINER M.D.) Allergies: Coded Allergies: No Known Allergies (Unverified , 05/14/16) Patient History Past Medical History: see triage record, old chart reviewed, asthma Past Surgical History: none Pertinent Family History: none Social History: Reports: smoking Immunizations: other Reviewed Nursing Documentation: PMH: Agreed, PSxH: Agreed (NOAH WEINER M.D.) Nursing Documentation-PMH Hx Cardiac Problems: Yes Hx Hypertension: Yes Hx Asthma: Yes Hx Cancer: No Hx Gastrointestinal Problems: Yes Hx Neurological Problems: No (NOAH WEINER M.D.) Review of Systems Eye: Denies: eye pain, blurred vision ENT: Denies: ear pain, nose congestion, throat swelling Respiratory: Reports: cough, shortness of breath, wheezing Cardiovascular: Denies: chest pain, palpitations Gastrointestinal: Denies: abdominal pain, diarrhea, nausea, vomiting Musculoskeletal: Denies: back pain, joint pain Skin: Denies: rash Neurological: Denies: headache, numbness Endocrine: Denies: increased thirst, increased urine Hematologic/Lymphatic: Denies: easy bruising All Other Systems: negative except mentioned in HPI (NOAH WEINER M.D.) Physical Exam Vital Signs Date Time Temp Pulse Resp B/P (MAP) Pulse Ox O2 Delivery O2 Flow Rate FiO2 08/01/17 05:45 112 26 164/94 88 Room Air vitals with hypoxia and high blood pressure Sp02 EP Interpretation: reviewed, abnormal General Appearance: well appearing, alert, mild distress Head: normocephalic, atraumatic Eyes: bilateral eye PERRL, bilateral eye EOMI ENT: hearing grossly normal, normal pharynx Neck: full range of motion, supple, no meningismus Respiratory: chest non-tender, respiratory distress, decreased breath sounds, accessory muscle use, wheezing Cardiovascular #1: regular rate, rhythm, no murmur Gastrointestinal: normal bowel sounds, non tender, no mass, no organomegaly, no bruit, non-distended Musculoskeletal: back normal, gait/station normal, normal range of motion Psychiatric: mood/affect normal Skin: warm/dry (NOAH WEINER M.D.) Procedures Critical Care Time Critical Care Time Critical care is mandated in this patient who presented with respiratory distress secondary to stat asthmaticus. Patient require my urgent intervention to attenuate the risks of respiratory collapse which may lead to cardiovascular collapse and . Critical care time is 35 minutes excluding any reportable procedure. Critical care time included evaluation, multiple reevaluation, looking at old charts, interpreting laboratory and diagnostic data, discussing case with patient and family and consultants, and charting. (NOAH WEINER M.D.) Medical Decision Making Diagnostic Impression: Primary Impression: Respiratory failure, acute Qualified Codes: J96.01 - Acute respiratory failure with hypoxia Additional Impression: Status asthmaticus Qualified Codes: J45.42 - Moderate persistent asthma with status asthmaticus ER Course Patient presents with severe asthma exacerbation. He has hypoxia. Improving slowly on that lasted treatment and steroid. Chest x-rays unremarkable. Unless he turned around significantly, most likely will be admitted to the hospital. I will sign this patient out to Dr. Almendarez for final disposition. (NOAH WEINER M.D.) ER Course Received signout from Dr Weiner 37-year-old male with asthma, current smoker, presenting with shortness of breath. Patient was last admitted within the month, breath and exacerbation, admitted for 4 days. States that he has been using his inhaler and his nebulizer about 2-3 times a day without relief. Currently he is in respiratory distress, however he is able to speak in 3-5 word sentences, and inspiratory and expiratory wheezing audible. Currently receiving nebs, already on steroids, mag is running Will anticipate admission Patient continues to have persistent wheezing despite nebulizer Feel slightly better, however repeat lung exam still with inspiratory and expiratory wheezing Additional nebs ordered Will admit to med surg Endorse patient to Dr. Ye who has accepted patient for admission (Lili Almendarez M.D.) Rhythm Strip Diag. Results Rhythm Strip Time: 06:20 EP Interpretation: yes Rate: 110 Rhythm: NSR, no PVC's, no ectopy (NOAH WEINER M.D.) Chest X-Ray Diagnostic Results Chest X-Ray Diagnostic Results : Chest X-Ray Ordered: Yes # of Views/Limited/Complete: 1 View Indication: Shortness of Breath EP Interpretation: Yes Interpretation: no consolidation, no effusion, no pneumothorax, no acute cardiopulmonary disease Impression: No acute disease Electronically Signed by: Noah Weiner MD (NOAH WEINER M.D.) Last Vital Signs Date Time Temp Pulse Resp B/P (MAP) Pulse Ox O2 Delivery O2 Flow Rate FiO2 08/01/17 05:45 112 26 164/94 88 Room Air Status: improved (NOAH WEINER M.D.) Disposition: ADMITTED INPATIENT Condition: Serious NOAH WEINER M.D. Aug 01, 2017 05:55 Lili Almendarez M.D. Aug 01, 2017 06:35
[2017-08-01] MEDS ORDERED: Ipratropium 0.02% Inh Soln 2.5ml UD HHN ONE ×2 (06:00→07:15)
[2017-08-01] MEDS ORDERED: Solu-MEDROL 125mg Inj IVP ONE (06:00)
[2017-08-01] MEDS ORDERED: Albuterol ud Inhalation HHN ONE (06:00)
[2017-08-01 06:08] VITALS: BP 164/94
[2017-08-01 06:08] LABS: BASOPHILS % (AUTO) 1.5 % (0.0-2.0); EOSINOPHILS % (AUTO) 10.7 % (0.0-3.0); LYMPHOCYTES % (AUTO) 25.2 % (20.0-45.0); MEAN CORPUSCULAR HEMOGLOBIN 32.9 PG (27.0-31.0); MEAN CORPUSCULAR HGB CONC 34.1 G/DL (32.0-36.0); MEAN CORPUSCULAR VOLUME 96 FL (80-99); MONOCYTES % (AUTO) 9.4 % (1.0-10.0); NEUTROPHILS % (AUTO) 53.3 % (45.0-75.0); PLATELET COUNT 232 K/UL (150-450); RED BLOOD COUNT 4.75 M/UL (4.70-6.10); RED CELL DISTRIBUTION WIDTH 12.1 % (11.6-14.8); WHITE BLOOD COUNT 6.6 K/UL (4.8-10.8)
[2017-08-01 06:19] LABS: ANION GAP 9 mmol/L (5-15); CALCIUM 9.6 MG/DL (8.5-10.1); CARBON DIOXIDE 26 MMOL/L (21-32); CHLORIDE 104 MMOL/L (98-107); CREATININE 1.1 MG/DL (0.55-1.30); GLOMERULAR FILTRATION RATE > 60 mL/min (>60); SODIUM 139 MMOL/L (136-145)
[2017-08-01 06:56] LABS: APPEARANCE,URINE CLEAR; KETONES,URINE NEGATIVE (NEGATIVE); LEUKOCYTE ESTERASE ,URINE NEGATIVE (NEGATIVE); NITRITE,URINE NEGATIVE (NEGATIVE); PH,URINE 6 (4.5-8.0); PROTEIN,URINE NEGATIVE (NEGATIVE); UROBILINOGEN,URINE NORMAL MG/DL (0.0-1.0)
[2017-08-01] MEDS: Albuterol ud Inhalation HHN SCH ×3 (07:25→07:48)
[2017-08-01 07:48] VITALS: BP 154/97
[2017-08-01 10:16] VITALS: BP 128/108
--- NOTE | 2017-08-01 10:19 | Diagnostic Imaging Report ---
Indication: SOB Technique: One view of the chest Comparison: 05/23/2017 Findings: Lungs and pleural spaces are clear. Heart size is normal. No significant change Impression: No acute process
[2017-08-01] MEDS: Solu-MEDROL 125mg Inj IVP SCH ×3 (10:43→21:34)
[2017-08-01] MEDS: Albuterol/Ipratropium 3ml neb HHN SCH ×4 (11:45→23:25)
[2017-08-01 16:00] VITALS: BP 146/83
[2017-08-01] MEDS: Montelukast 10mg tablet ORAL SCH (17:39)
[2017-08-01] MEDS: Breo Ellipta 100/25mcg - 14 dose INH SCH (19:07)
[2017-08-01 20:00] VITALS: BP 155/96
[2017-08-01] MEDS ORDERED: Tylenol #3 tab (300mg/30mg) ORAL PRN (21:00)
[2017-08-01] MEDS: Heparin 5000 units/ml inj SUBQ SCH (21:34)
[2017-08-02] VITALS: BP 155/91
[2017-08-02] MEDS: Albuterol/Ipratropium 3ml neb HHN SCH ×6 (03:00→23:49)
[2017-08-02 04:00] VITALS: BP 134/64
[2017-08-02] MEDS: Solu-MEDROL 125mg Inj IVP SCH ×2 (05:22→14:17)
[2017-08-02] MEDS: Heparin 5000 units/ml inj SUBQ SCH (08:30)
[2017-08-02 09:00] VITALS: BP 144/86
[2017-08-02] MEDS: Breo Ellipta 100/25mcg - 14 dose INH SCH ×2 (09:09→20:11)
[2017-08-02 12:00] VITALS: BP 141/80
[2017-08-02 15:49] VITALS: BP 144/88
[2017-08-02] MEDS: Montelukast 10mg tablet ORAL SCH (16:57)
--- NOTE | 2017-08-02 17:00 | History and Physical Report ---
DATE OF ADMISSION: 08/01/2017 CHIEF COMPLAINT: Asthma exacerbation. HISTORY OF PRESENT ILLNESS: The patient is a very pleasant 37-year-old male with history of asthma. He presented with complaints of slowly progressive shortness of breath. He ran out of some of his asthma medications. He could not get them refilled. He presented to the emergency room where he received an IV steroids and respiratory treatments. He continues to wheeze and he is therefore admitted for further evaluation and care. He denies any fever or chills. He has had a nonproductive cough. He has no ill contacts. PAST MEDICAL HISTORY: As above. PAST SURGICAL HISTORY: None. CURRENT MEDICATIONS: Reconciled and reviewed. ALLERGIES: None. FAMILY HISTORY: None. SOCIAL HISTORY: Negative for tobacco, ethanol, or drugs. REVIEW OF SYSTEMS: GENERAL: No fever or chills. HEENT: No headaches or visual changes. CARDIOPULMONARY: No chest pain. GASTROINTESTINAL: No nausea or vomiting. GENITOURINARY: No urgency or frequency. MUSCULOSKELETAL: No joint pain or swelling. NEUROLOGIC: No evidence of seizures. PHYSICAL EXAMINATION: VITAL SIGNS: Temperature 97.5, pulse 106, respirations 20, blood pressure 134/64, and oxygen saturation 95% on 2 L of nasal cannula. GENERAL: The patient is a well-developed male, in no apparent distress. He is able to speak full sentences. NECK: Supple. There is no jugular venous distention. HEART: Regular rate and rhythm. LUNGS: Scattered wheeze. ABDOMEN: Soft, nontender, and nondistended. EXTREMITIES: Without clubbing, cyanosis, or edema. LABORATORY DATA: White count of 6 and hemoglobin 15. Sodium 139. UA was clear. Chest x-ray also was clear. ASSESSMENT: This is a pleasant male with possible asthma exacerbation. PLAN: 1. IV steroids and respiratory treatments. We will wean as soon as possible. 2. Anticipate at least a 2-night hospitalization before the patient is stable enough to be discharged. Harlan Ye M.D. DR: EULOGIO JOB#: [id number] CC:
[2017-08-02 20:18] VITALS: BP 148/89
[2017-08-03 00:14] VITALS: BP 152/87
[2017-08-03] MEDS: Solu-MEDROL 125mg Inj IVP SCH ×3 (00:39→21:23)
[2017-08-03] MEDS: Heparin 5000 units/ml inj SUBQ SCH ×3 (00:45→21:28)
[2017-08-03] MEDS: Albuterol/Ipratropium 3ml neb HHN SCH ×6 (03:40→23:59)
[2017-08-03 04:00] VITALS: BP 146/86
[2017-08-03 08:00] VITALS: BP 145/100
--- NOTE | 2017-08-03 08:04 | General Progress Note ---
Assessment/Plan Problem List: (1) Status asthmaticus ICD Codes: J45.902 - Unspecified asthma with status asthmaticus SNOMED: 784045731 Qualifiers: Qualified Codes: J45.42 - Moderate persistent asthma with status asthmaticus Status: stable, progressing, tolerating diet Assessment/Plan cont iv steroids wean in am resp rx atc dc planning tomorrow Subjective ROS Limited/Unobtainable: No Constitutional: Reports: no symptoms HEENT: Reports: no symptoms Cardiovascular: Reports: no symptoms Respiratory: Reports: cough, wheezing Gastrointestinal/Abdominal: Reports: no symptoms Genitourinary: Reports: no symptoms Neurologic/Psychiatric: Reports: no symptoms Endocrine: Reports: no symptoms Hematologic/Lymphatic: Reports: no symptoms Allergies: Coded Allergies: No Known Allergies (Unverified , 05/14/16) All Systems: reviewed and negative except above Subjective +cough. less wheezing. less sob. on iv steroids. Objective Last 24 Hour Vital Signs Date Time Temp Pulse Resp B/P (MAP) Pulse Ox O2 Delivery O2 Flow Rate FiO2 08/03/17 07:53 87 18 99 Room Air 21 08/03/17 07:40 98 Room Air 21 08/03/17 07:40 Room Air 21 08/03/17 04:00 97.0 72 20 146/86 99 Nasal Cannula 2.0 08/03/17 03:50 87 18 99 Nasal Cannula 2.0 08/03/17 03:41 28 08/03/17 03:40 82 18 99 Nasal Cannula 2.0 08/03/17 00:14 98.1 94 20 152/87 97 Nasal Cannula 2.0 08/03/17 00:06 86 18 99 Nasal Cannula 2.0 08/02/17 23:49 28 08/02/17 23:49 85 18 99 Nasal Cannula 2.0 28 08/02/17 21:00 85 16 98 Nasal Cannula 2.0 28 08/02/17 21:00 85 18 98 Nasal Cannula 2.0 08/02/17 20:23 92 18 99 Nasal Cannula 2.0 28 08/02/17 20:18 96.8 84 20 148/89 99 Simple Mask 08/02/17 20:13 98 Nasal Cannula 2.0 28 08/02/17 20:13 92 18 99 Nasal Cannula 2.0 08/02/17 20:13 Nasal Cannula 2.0 28 08/02/17 20:13 28 08/02/17 16:08 87 18 99 Nasal Cannula 2.0 28 08/02/17 16:00 84 18 99 Nasal Cannula 2.0 28 08/02/17 16:00 28 08/02/17 15:49 97.6 93 19 144/88 98 Nasal Cannula 2.0 08/02/17 12:00 97.7 88 21 141/80 98 Nasal Cannula 2.0 08/02/17 11:05 98 18 99 Nasal Cannula 2.0 28 08/02/17 11:00 28 08/02/17 11:00 99 18 99 Nasal Cannula 2.0 28 08/02/17 09:10 92 18 98 Nasal Cannula 2.0 08/02/17 09:09 90 16 98 Nasal Cannula 2.0 08/02/17 09:00 97.4 107 19 144/86 98 Nasal Cannula 2.0 Height (Feet): 5 Height (Inches): 10.00 Weight (Pounds): 173 General Appearance: WD/WN, alert Neck: non-tender, normal alignment, supple Cardiovascular: normal rate Respiratory/Chest: expiratory wheezing Abdomen: normal bowel sounds, non tender, soft, no organomegaly Edema: no edema noted Arm (L), no edema noted Arm (R), no edema noted Leg (L), no edema noted Leg (R), no edema noted Pedal (L), no edema noted Pedal (R), no edema noted Generalized TYRELL BINGHAM Aug 03, 2017 08:04
[2017-08-03] MEDS: Breo Ellipta 100/25mcg - 14 dose INH SCH ×2 (08:59→18:00)
[2017-08-03] MEDS: guaiFENesin DM 100mg/5ml ORAL PRN ×2 (11:10→16:58)
[2017-08-03 12:00] VITALS: BP 150/87
[2017-08-03 16:00] VITALS: BP 133/83
[2017-08-03] MEDS: Montelukast 10mg tablet ORAL SCH (16:52)
[2017-08-03 21:00] VITALS: BP 127/98
[2017-08-04] MEDS: Albuterol/Ipratropium 3ml neb HHN SCH ×2 (03:00→08:11)
[2017-08-04 04:00] VITALS: BP 134/83
[2017-08-04 08:00] VITALS: BP 140/90
[2017-08-04] MEDS: Breo Ellipta 100/25mcg - 14 dose INH SCH (08:17)
[2017-08-04] MEDS: Heparin 5000 units/ml inj SUBQ SCH (09:00)
[2017-08-04] MEDS: guaiFENesin DM 100mg/5ml ORAL PRN (09:15)
[2017-08-04] MEDS: Solu-MEDROL 125mg Inj IVP SCH (09:16)
[2017-08-04] MEDS ORDERED: PREDNISONE10 MG ORAL (10:42)
--- NOTE | 2017-08-04 10:44 | Discharge Instructions ---
Discharge Instructions Discharge Instructions Call MD/Return to Hospital if: sob Activity: light activity For Congestive Heart Failure Reminder take predisone 30mg daily for 3 days, then 20mg daily for 3 days, then 10mg daily for 3 days TYRELL BINGHAM Aug 04, 2017 10:44
[2017-08-04 12:00] VITALS: BP 146/98
--- NOTE | 2017-08-04 21:15 | Discharge Summary ---
DATE OF ADMISSION: 08/01/2017 DATE OF DISCHARGE: 08/04/2017 ADMISSION DIAGNOSIS: Asthma exacerbation. DISCHARGE DIAGNOSIS: Asthma exacerbation. BRIEF HISTORY AND HOSPITAL COURSE: The patient is a very pleasant male, who was admitted with complaints of asthma exacerbation. He has failed to respond to the treatment at home. He was admitted and received intravenous steroids and respiratory treatments [id number]. After several days, he was approved to be discharged home on a steroid taper. He has been ordered all of those medications. Please see discharge medication list for discharge medications. DIET: Regular diet. ACTIVITY: Ad-sedrick. FOLLOWUP: The patient will follow up by his PMD in one to two weeks. Harlan Ye M.D. DR: Zaida JOB#: [id number] CC:
== END 2017-08-04 12:03 | disposition home or self-care (01) | DRG 202 ==
LOC: EMR 06:03 → 4E 07:53 → EDBEDREQSVC 08:30 → EDBEDREQ 08:51 → 4E 14:12
DX: J45.41 Moderate persistent asthma with (acute) exacerbation (principal); J96.01 Acute respiratory failure with hypoxia; Z72.0 Tobacco use
CPT/HCPCS: 36415; 71010; 80048; 80307; 81003; 85025; 94640; 94664; 94760; 99291; J7620

== ENCOUNTER 2017-09-17 08:29 | Emergency (ER) | payer MEDICARE, MEDICAID ==
[~2017-09-17] VITALS: Ht 177.8 cm; Wt 84.8 kg
[~2017-09-17 08:29] MED LIST changes: +BREO ELLIPTA 11 EACH IH; +PREDNISONE10 MG ORAL
--- NOTE | 2017-09-17 10:14 | Diagnostic Imaging Report ---
Indication: Pain due to fall Technique: 3 views of the left ankle Comparison: none Findings: No acute fractures. No dislocations. Joint spaces are preserved. There is equivocal mild medial soft tissue swelling Impression: No acute bony trauma
[2017-09-17] MEDS ORDERED: IBUPROFEN600 MG ORAL (10:42)
[2017-09-17 10:58] VITALS: BP 150/85
--- NOTE | 2017-09-17 12:04 | Emergency Room Report ---
History of Present Illness General Chief Complaint: Lower Extremity Injury Source: Patient Present Illness HPI 37-year-old male with swelling to inner left ankle for 2 weeks states he jumped out of the tree and sprained ankle Has not been to ER or follow up with since As not had an x-ray, is not taking any pain medication able to ambulate wearing high top shoes no Previous injury to left ankle or foot Allergies: Coded Allergies: No Known Allergies (Unverified , 05/14/16) Patient History Past Medical History: none Past Surgical History: none Pertinent Family History: none Social History: Denies: smoking, alcohol use, drug use Immunizations: UTD Reviewed Nursing Documentation: PMH: Agreed, PSxH: Agreed Nursing Documentation-PMH Past Medical History: No History, Except For Hx Cardiac Problems: Yes Hx Hypertension: Yes Hx Asthma: Yes Hx Cancer: No Hx Gastrointestinal Problems: Yes Hx Neurological Problems: No Review of Systems All Other Systems: negative except mentioned in HPI Physical Exam Vital Signs Date Time Temp Pulse Resp B/P (MAP) Pulse Ox O2 Delivery O2 Flow Rate FiO2 09/17/17 08:38 98.1 76 18 156/106 97 Room Air Sp02 EP Interpretation: reviewed, normal General Appearance: normal inspection, well appearing, no apparent distress, alert, GCS 15, non-toxic Head: normocephalic, atraumatic Eyes: bilateral eye PERRL, bilateral eye EOMI ENT: normal ENT inspection, hearing grossly normal, normal pharynx, no angioedema, normal voice, TMs + canals normal, uvula midline, moist mucus membranes Neck: normal inspection, full range of motion, supple, thyroid normal, no meningismus, no bony tend Respiratory: normal inspection, lungs clear, normal breath sounds, no rhonchi, no respiratory distress, no retraction, no accessory muscle use, no wheezing, speaking full sentences Cardiovascular #1: regular rate, rhythm, no edema, no JVD, normal capillary refill Gastrointestinal: normal inspection, normal bowel sounds, non tender, soft, no mass, no peritonitis, non-distended, no guarding, no hernia, no pulsatile mass Genitourinary: no CVA tenderness Musculoskeletal: normal inspection, back normal, normal range of motion, no calf tenderness, pelvis stable, Marylin's Sign negative, other - left ankle: medial aspect swelling. No obvious deformity. Neurologic: normal inspection, alert, oriented x3, responsive, director data analytics III-XII nml as tested, motor strength/tone normal, cerebellar normal, normal gait, speech normal Psychiatric: normal inspection, judgement/insight normal, mood/affect normal, no suicidal/homicidal ideation, no delusions Skin: normal inspection, normal color, no rash Lymphatic: normal inspection, no adenopathy Medical Decision Making Diagnostic Impression: Primary Impression: Ankle sprain Qualified Codes: S93.402A - Sprain of unspecified ligament of left ankle, initial encounter ER Course Mild left ankle sprain No acute fracture dislocation on ER review of x-rays advised RICE Prescription for Motrin given yo M F with DDX: Plan: Obtain labs, ua, ucx, ucg, CXR, EKG ER course: Patient has remained stable during ED stay. Disposition: Patient is to be discharged to home. Prescriptions given are motrin Patient is instructed to follow up with their primary care doctor within 5 days. Strict return precautions discussed with patient such as fever, chills, worsening/severe pain, nausea, vomiting, which may indicate severe illness. Patient verbalizes understanding and agrees with plan. Please note that this Emergency Department Report was dictated using XLerantpunch machine operator technology software, occasionally this can lead to erroneous entry secondary to interpretation by the dictation equipment Other X-Ray Diagnostic Results Other X-Ray Diagnostic Results : # of Views/Limited Vs Complete: 3 View Indication: Pain EP Interpretation: Yes Interpretation: no dislocation, no fractures, other - mild medial aspect swelling Electronically Signed by: Dr Joya Saenz MD Last Vital Signs Date Time Temp Pulse Resp B/P (MAP) Pulse Ox O2 Delivery O2 Flow Rate FiO2 09/17/17 10:58 64 18 150/85 98 Room Air 09/17/17 08:38 98.1 Status: improved Disposition: HOME, SELF-CARE Condition: Improved Scripts Ibuprofen* (MOTRIN*) 600 Mg Tablet 600 MG ORAL THREE TIMES A DAY for For Pain for 7 Days, #30 TAB 0 Refills Prov: JOYA SAENZ M.D. 09/17/17 Patient Instructions: Ankle Sprain Additional Instructions: - Ice 3-4x a day for pain - Take motrin up to 3x a day with food for pain JOYA SAENZ M.D. Sep 17, 2017 12:03
== END 2017-09-17 10:52 | disposition home or self-care (01) ==
LOC: EMR 09:20
DX: S93.402A Sprain of unspecified ligament of left ankle, initial encounter (principal); Y93.39 Activity, other involving climbing, rappelling and jumping off; Y92.89 Other specified places as the place of occurrence of the external cause; I10 Essential (primary) hypertension; J45.909 Unspecified asthma, uncomplicated
CPT/HCPCS: 99283

== ENCOUNTER 2017-10-13 06:13 | Inpatient (IN) | payer MEDICARE, MEDICAID ==
[~2017-10-13] VITALS: Ht 177.8 cm; Wt 80.3 kg
[~2017-10-13 06:13] MED LIST changes: +IBUPROFEN600 MG ORAL
[2017-10-13 06:15] VITALS: BP 160/93
[2017-10-13] MEDS ORDERED: Solu-MEDROL 125mg Inj IVP ONE (06:15)
[2017-10-13] MEDS ORDERED: Albuterol ud Inhalation HHN ONE ×2 (06:15→09:00)
[2017-10-13] MEDS ORDERED: Ipratropium 0.02% Inh Soln 2.5ml UD HHN ONE (06:15)
[2017-10-13] MEDS ORDERED: SPIRIVA18 MCG INH (06:16)
--- NOTE | 2017-10-13 06:29 | Emergency Room Report ---
History of Present Illness General Chief Complaint: Dyspnea/Respdistress Source: Patient Present Illness HPI is a 37-year-old male with a history of asthma with multiple admissions in the past. He presents with acute onset of asthma exacerbation. Occur around 3 AM. Woke up with shortness of breath. took a breathing treatment without any relief. he called 911 around 6 AM. EMS said he was tight and wheezing. They gave 5 mg albuterol and brought him here. Patient denies any other complaint. Denies any alcohol or drugs. Denies any smoking. worse with exertion. Worse with movement. Allergies: Coded Allergies: No Known Allergies (Unverified , 05/14/16) Patient History Past Medical History: see triage record, old chart reviewed, asthma Past Surgical History: none Pertinent Family History: none Social History: Denies: smoking - Quit last month Immunizations: other Reviewed Nursing Documentation: PMH: Agreed, PSxH: Agreed Nursing Documentation-PMH Hx Cardiac Problems: Yes Hx Hypertension: Yes Hx Asthma: Yes Hx Cancer: No Hx Gastrointestinal Problems: Yes Hx Neurological Problems: No Review of Systems Eye: Denies: eye pain, blurred vision ENT: Denies: ear pain, nose congestion, throat swelling Respiratory: Reports: cough, shortness of breath, wheezing Cardiovascular: Denies: chest pain, palpitations Gastrointestinal: Denies: abdominal pain, diarrhea, nausea, vomiting Musculoskeletal: Denies: back pain, joint pain Skin: Denies: rash Neurological: Denies: headache, numbness Endocrine: Denies: increased thirst, increased urine Hematologic/Lymphatic: Denies: easy bruising All Other Systems: negative except mentioned in HPI Physical Exam Vital Signs Date Time Temp Pulse Resp B/P (MAP) Pulse Ox O2 Delivery O2 Flow Rate FiO2 10/13/17 06:10 98.8 134 32 169/99 95 Room Air 10/13/17 06:19 2.0 28 vitals with tachycardia and high blood pressure Sp02 EP Interpretation: reviewed, normal General Appearance: moderate distress Head: normocephalic, atraumatic Eyes: bilateral eye PERRL, bilateral eye EOMI ENT: hearing grossly normal, normal pharynx Neck: full range of motion, supple, no meningismus Respiratory: chest non-tender, respiratory distress, wheezing Cardiovascular #1: regular rate, rhythm, no murmur Gastrointestinal: normal bowel sounds, non tender, no mass, no organomegaly, no bruit, non-distended Musculoskeletal: back normal, normal range of motion Neurologic: alert, oriented x3 Psychiatric: mood/affect normal Skin: warm/dry Procedures Critical Care Time Critical Care Time Critical care is mandated in this patient who presented with respiratory distress secondary to severe asthma. Patient require my urgent intervention to attenuate the risks of respiratory collapse which may lead to cardiovascular collapse and . Critical care time is 35 minutes excluding any reportable procedure. Critical care time included evaluation, multiple reevaluation, looking at old charts, interpreting laboratory and diagnostic data, discussing case with patient and family and consultants, and charting. Medical Decision Making Diagnostic Impression: Primary Impression: Status asthmaticus Qualified Codes: J45.42 - Moderate persistent asthma with status asthmaticus Additional Impression: Respiratory distress ER Course Patient presents with status asthmaticus. He is tight and wheezing. Nebulizer treatment initiated. Steroids given. Magnesium ordered. Patient most likely will be admitted unless he turned around completely. I will sign this patient out to Dr. Leal. Rhythm Strip Diag. Results Rhythm Strip Time: 06:28 EP Interpretation: yes Rate: 113 Rhythm: NSR, no PVC's, no ectopy Chest X-Ray Diagnostic Results Chest X-Ray Diagnostic Results : Chest X-Ray Ordered: Yes # of Views/Limited/Complete: 1 View Indication: Shortness of Breath EP Interpretation: Yes Interpretation: no consolidation, no effusion, no pneumothorax Impression: No acute disease Electronically Signed by: Noah Weiner MD Last Vital Signs Date Time Temp Pulse Resp B/P (MAP) Pulse Ox O2 Delivery O2 Flow Rate FiO2 10/13/17 06:21 110 28 97 Nasal Cannula 2.0 28 10/13/17 06:10 98.8 169/99 Status: improved Disposition: ADMITTED INPATIENT Condition: Serious NOAH WEINER M.D. Oct 13, 2017 06:29
[2017-10-13 06:45] VITALS: BP 133/89
[2017-10-13 06:52] LABS: EOSINOPHILS % (AUTO) 1.9 % (0.0-3.0); HEMATOCRIT 46.5 % (42.0-52.0); HEMOGLOBIN 15.4 G/DL (14.2-18.0); LYMPHOCYTES % (AUTO) 11.1 % (20.0-45.0); MEAN CORPUSCULAR VOLUME 97 FL (80-99); MONOCYTES % (AUTO) 4.7 % (1.0-10.0); NEUTROPHILS % (AUTO) 81.3 % (45.0-75.0); PLATELET COUNT 233 K/UL (150-450); RED BLOOD COUNT 4.79 M/UL (4.70-6.10); RED CELL DISTRIBUTION WIDTH 11.4 % (11.6-14.8); WHITE BLOOD COUNT 10.6 K/UL (4.8-10.8)
[2017-10-13 06:55] LABS: APPEARANCE,URINE CLEAR; BILIRUBIN, URINE NEGATIVE (NEGATIVE); COLOR,URINE PALE YELLOW; GLUCOSE, URINE (UA) NEGATIVE (NEGATIVE); KETONES,URINE NEGATIVE (NEGATIVE); LEUKOCYTE ESTERASE ,URINE NEGATIVE (NEGATIVE); NITRITE,URINE NEGATIVE (NEGATIVE); PH,URINE 6 (4.5-8.0); PROTEIN,URINE NEGATIVE (NEGATIVE); UROBILINOGEN,URINE NORMAL MG/DL (0.0-1.0)
[2017-10-13 06:58] LABS: ANION GAP 10 mmol/L (5-15); BLOOD UREA NITROGEN 8 mg/dL (7-18); CALCIUM 9.8 MG/DL (8.5-10.1); CARBON DIOXIDE 29 MMOL/L (21-32); CHLORIDE 101 MMOL/L (98-107); CREATININE 1.1 MG/DL (0.55-1.30); POTASSIUM 3.8 MMOL/L (3.5-5.1); SODIUM 140 MMOL/L (136-145)
[2017-10-13 07:10] VITALS: BP 142/84
--- NOTE | 2017-10-13 09:28 | Diagnostic Imaging Report ---
Indication: Shortness of breath Technique: One view of the chest Comparison: 08/01/2017 Findings: Lungs and pleural spaces are clear. Heart size is normal. No significant interim change Impression: Negative
[2017-10-13 10:19] VITALS: BP 154/95
[2017-10-13] MEDS ORDERED: Acetaminophen 500mg (ES) tab ORAL PRN (10:45)
[2017-10-13] MEDS: Heparin 5000 units/ml inj SUBQ SCH ×2 (11:00→20:49)
[2017-10-13 12:00] VITALS: BP 158/89
[2017-10-13] MEDS: Albuterol/Ipratropium 3ml neb HHN SCH ×4 (12:24→22:53)
[2017-10-13] MEDS: Pantoprazole Inj IVP SCH (13:49)
[2017-10-13] MEDS: Solu-MEDROL 125mg Inj IVP SCH ×2 (14:26→20:49)
[2017-10-13 20:00] VITALS: BP 127/77
[2017-10-14] VITALS: BP 132/74
[2017-10-14 04:00] VITALS: BP 144/93
[2017-10-14] MEDS: Albuterol/Ipratropium 3ml neb HHN SCH ×6 (04:00→23:33)
[2017-10-14] MEDS: Solu-MEDROL 125mg Inj IVP SCH ×3 (06:24→20:16)
[2017-10-14 08:00] VITALS: BP 155/91
--- NOTE | 2017-10-14 08:40 | General Progress Note ---
Assessment/Plan Problem List: (1) Status asthmaticus ICD Codes: J45.902 - Unspecified asthma with status asthmaticus SNOMED: 286180445 Qualifiers: Qualified Codes: J45.42 - Moderate persistent asthma with status asthmaticus (2) Respiratory distress ICD Codes: R06.03 - Acute respiratory distress SNOMED: 228761921 Status: stable Assessment/Plan wean steroids resp rx atc Subjective ROS Limited/Unobtainable: No Constitutional: Reports: malaise, weakness HEENT: Reports: no symptoms Cardiovascular: Reports: no symptoms Respiratory: Reports: wheezing Gastrointestinal/Abdominal: Reports: no symptoms Genitourinary: Reports: no symptoms Neurologic/Psychiatric: Reports: no symptoms Endocrine: Reports: no symptoms Hematologic/Lymphatic: Reports: no symptoms Allergies: Coded Allergies: No Known Allergies (Unverified , 05/14/16) All Systems: reviewed and negative except above Subjective better. much less wheezing and sob. on iv steroids. on resp rx atc. Objective Last 24 Hour Vital Signs Date Time Temp Pulse Resp B/P (MAP) Pulse Ox O2 Delivery O2 Flow Rate FiO2 10/14/17 08:00 97.3 98 20 155/91 97 10/14/17 07:08 90 18 95 Room Air 21 10/14/17 04:11 97 20 99 Nasal Cannula 2.0 28 10/14/17 04:01 99 20 99 Nasal Cannula 2.0 28 10/14/17 04:00 97.7 97 20 144/93 98 10/14/17 00:00 98.1 100 20 132/74 98 10/13/17 23:01 101 20 99 Nasal Cannula 2.0 28 10/13/17 22:53 97 18 99 Nasal Cannula 2.0 28 10/13/17 20:24 95 20 99 Nasal Cannula 2.0 28 10/13/17 20:20 94 18 99 Nasal Cannula 2.0 28 10/13/17 20:02 90 18 99 Nasal Cannula 2.0 28 10/13/17 20:00 97.7 96 20 127/77 98 10/13/17 16:01 89 20 99 Nasal Cannula 2.0 28 10/13/17 15:57 88 18 99 Nasal Cannula 2.0 28 10/13/17 12:30 103 20 97 Nasal Cannula 2.0 28 10/13/17 12:27 102 20 Nasal Cannula 2.0 28 10/13/17 12:26 105 20 96 Nasal Cannula 2.0 28 10/13/17 12:00 98.1 109 20 158/89 96 10/13/17 10:19 97.3 108 25 154/95 98 Non-Rebreather 5.0 28 10/13/17 09:47 103 25 144/90 100 Nasal Cannula 2.0 10/13/17 09:45 113 18 98 Room Air 10/13/17 09:00 110 24 98 Nasal Cannula 2.0 28 Intake and Output 10/13/17 10/14/17 19:00 07:00 Intake Total 560 ml 800 ml Balance 560 ml 800 ml Intake Oral 360 ml 800 ml IV Total 200 ml # Voids 1 2 # Bowel Movements 1 Height (Feet): 5 Height (Inches): 10.00 Weight (Pounds): 177 General Appearance: WD/WN, alert Neck: supple Cardiovascular: regular rhythm Respiratory/Chest: expiratory wheezing Abdomen: normal bowel sounds, non tender, soft, no organomegaly Edema: no edema noted Arm (L), no edema noted Arm (R), no edema noted Leg (L), no edema noted Leg (R), no edema noted Pedal (L), no edema noted Pedal (R), no edema noted Generalized TYRELL BINGHAM Oct 14, 2017 08:40
[2017-10-14] MEDS: Heparin 5000 units/ml inj SUBQ SCH ×2 (09:00→20:16)
--- NOTE | 2017-10-14 09:14 | Pulmonology Progress Note ---
Assessment/Plan Assessment/Plan severe persistent Asthma recurrent exacerbations smoking history PLAN continue same likely prednisone taper in am likely po antibiotics in am resume home inhalers likely not fully compliant will add advair for now patient is a good candidate for bronchial thermoplasty impression, plan, and exam edited and reviewed in detail care discussed with RN Subjective Allergies: Coded Allergies: No Known Allergies (Unverified , 05/14/16) Subjective care noted and reviewed appears to have improved stopped smoking x 1 week Objective Last 24 Hour Vital Signs Date Time Temp Pulse Resp B/P (MAP) Pulse Ox O2 Delivery O2 Flow Rate FiO2 10/14/17 08:00 97.3 98 20 155/91 97 10/14/17 07:08 90 18 95 Room Air 21 10/14/17 04:11 97 20 99 Nasal Cannula 2.0 28 10/14/17 04:01 99 20 99 Nasal Cannula 2.0 28 10/14/17 04:00 97.7 97 20 144/93 98 10/14/17 00:00 98.1 100 20 132/74 98 10/13/17 23:01 101 20 99 Nasal Cannula 2.0 28 10/13/17 22:53 97 18 99 Nasal Cannula 2.0 28 10/13/17 20:24 95 20 99 Nasal Cannula 2.0 28 10/13/17 20:20 94 18 99 Nasal Cannula 2.0 28 10/13/17 20:02 90 18 99 Nasal Cannula 2.0 28 10/13/17 20:00 97.7 96 20 127/77 98 10/13/17 16:01 89 20 99 Nasal Cannula 2.0 28 10/13/17 15:57 88 18 99 Nasal Cannula 2.0 28 10/13/17 12:30 103 20 97 Nasal Cannula 2.0 28 10/13/17 12:27 102 20 Nasal Cannula 2.0 28 10/13/17 12:26 105 20 96 Nasal Cannula 2.0 28 10/13/17 12:00 98.1 109 20 158/89 96 10/13/17 10:19 97.3 108 25 154/95 98 Non-Rebreather 5.0 28 10/13/17 09:47 103 25 144/90 100 Nasal Cannula 2.0 10/13/17 09:45 113 18 98 Room Air Intake and Output 10/13/17 10/14/17 19:00 07:00 Intake Total 560 ml 800 ml Balance 560 ml 800 ml Intake Oral 360 ml 800 ml IV Total 200 ml # Voids 1 2 # Bowel Movements 1 Objective WDWN NAD reduced breath sounds bilaterally with improved wheeze [id number] without MRG NABS nontender no HSM no CCE nonfocal alert Current Medications Medications (Trade) Dose Ordered Sig/Wojciech Route PRN Reason Start Time Stop Time Status Last Admin Dose Admin Acetaminophen (Tylenol) 500 mg Q4H PRN ORAL Mild Pain/Temp > 100.5 10/13/17 10:45 11/12/17 10:44 Albuterol/ Ipratropium (Albuterol/ Ipratropium) 3 ml Q4HRT HHN 10/13/17 11:00 10/18/17 10:59 10/14/17 07:08 Heparin Sodium (Porcine) (Heparin 5000 units/ml) 5,000 units EVERY 12 HOURS SUBQ 10/13/17 11:00 11/12/17 10:59 Methylprednisolone Sodium Succinate (Solu-MEDROL) 60 mg EVERY 12 HOURS IVP 10/14/17 09:00 11/12/17 13:59 Pantoprazole (Protonix) 40 mg DAILY IVP 10/13/17 11:00 11/12/17 10:59 10/13/17 13:49 YUSRA ANDINO Oct 14, 2017 09:14
[2017-10-14] MEDS: Pantoprazole Inj IVP SCH (09:36)
[2017-10-14] MEDS: Advair 250/50 Inhaler - 14 dose INH SCH ×2 (11:35→20:19)
[2017-10-14 12:00] VITALS: BP 145/74
[2017-10-14 16:00] VITALS: BP 145/81
[2017-10-14 20:00] VITALS: BP 137/87
--- NOTE | 2017-10-14 23:00 | History and Physical Report ---
DATE OF ADMISSION: 10/13/2017 CHIEF COMPLAINT: Asthma exacerbation. HISTORY OF PRESENT ILLNESS: The patient is a pleasant 37-year-old male with a known history of asthma. He has had several admissions for the last year for asthma exacerbation. He notes two days of progressive shortness of breath. He has been taking his inhalers, nebulizer as well as a few doses of prednisone, but failed to improve. He presented to the emergency room where his shortness of breath and wheezing did not improve with breathing treatments. He is now admitted for further evaluation and care. PAST MEDICAL HISTORY: As above. PAST SURGICAL HISTORY: None. CURRENT MEDICATIONS: Reconciled and reviewed. ALLERGIES: None. FAMILY HISTORY: None. SOCIAL HISTORY: The patient is a smoker, but quit several weeks ago. There is no history of alcohol or drugs. REVIEW OF SYSTEMS: GENERAL: No fever or chills. HEENT: No headaches or visual changes. CARDIOPULMONARY: No chest pain. Positive shortness of breath and tightness. GASTROINTESTINAL: No nausea or vomiting. GENITOURINARY: No urgency or frequency. MUSCULOSKELETAL: No joint pain or swelling. NEUROLOGIC: No seizures. PHYSICAL EXAMINATION: GENERAL: The patient is a well-developed male, in no apparent distress. He is able to speak in full sentences. VITAL SIGNS: Temperature 97.3 degrees, pulse 108, respirations 25, and blood pressure 154/95. HEENT: His pupils are equal, round, and reactive to light. Sclerae anicteric. Oropharynx clear. NECK: Supple. HEART: Regular rate and rhythm. LUNGS: Diminished breath sounds with diffuse wheezes and poor air movement. ABDOMEN: Soft, nontender, and nondistended. EXTREMITIES: Without clubbing, cyanosis, or edema. LABORATORY AND DIAGNOSTIC DATA: White count 10 and hemoglobin 15. Sodium 140 and potassium 3.8. UA was clear. Toxicology screen negative. Chest x-ray is clear. ASSESSMENT: This is a pleasant male, admitted with severe asthma exacerbation. PROBLEMS: Severe asthma exacerbation. PLAN: Intravenous steroids. Respiratory treatments [id number]. Pulmonary consultation. DVT and stress ulcer prophylaxis. Harlan Ye M.D. DR: SONIA JOB#: [id number] CC:
[2017-10-15] VITALS: BP 141/73
[2017-10-15] MEDS: Albuterol/Ipratropium 3ml neb HHN SCH ×3 (03:16→10:59)
[2017-10-15 04:43] VITALS: BP 102/58
[2017-10-15 08:00] VITALS: BP 155/92
--- NOTE | 2017-10-15 08:08 | Pulmonology Progress Note ---
Assessment/Plan Assessment/Plan severe persistent Asthma recurrent exacerbations smoking history PLAN continue same ok for prednisone taper likely po antibiotics in am resume home inhalers likely not fully compliant advair and spiriva patient is a good candidate for bronchial thermoplasty will follow up after discharge impression, plan, and exam edited and reviewed in detail care discussed with RN Subjective Allergies: Coded Allergies: No Known Allergies (Unverified , 05/14/16) Subjective care noted and reviewed appears near baseline Objective Last 24 Hour Vital Signs Date Time Temp Pulse Resp B/P (MAP) Pulse Ox O2 Delivery O2 Flow Rate FiO2 10/15/17 07:25 100 18 99 Room Air 21 10/15/17 07:15 99 16 96 Room Air 21 10/15/17 04:43 97.8 85 20 102/58 94 10/15/17 03:25 87 18 99 Room Air 21 10/15/17 03:15 81 16 96 Room Air 21 10/15/17 00:00 97.2 86 20 141/73 95 10/14/17 20:39 90 20 99 Room Air 21 10/14/17 20:19 87 18 96 Room Air 21 10/14/17 20:19 21 10/14/17 20:00 97.3 87 20 137/87 97 10/14/17 16:00 97.3 94 20 145/81 98 10/14/17 15:04 92 18 98 Room Air 21 10/14/17 14:54 90 16 94 Room Air 21 10/14/17 12:00 97.3 94 20 145/74 96 10/14/17 11:30 99 18 94 Room Air 21 10/14/17 11:30 99 18 94 Room Air 21 10/14/17 11:30 99 18 94 Room Air 21 10/14/17 11:30 99 18 94 Room Air 21 10/14/17 11:24 96 18 97 Room Air 21 10/14/17 11:15 94 16 96 Room Air 21 Intake and Output 10/14/17 10/15/17 19:00 07:00 Intake Total 320 ml 720 ml Balance 320 ml 720 ml Intake Oral 320 ml 720 ml # Voids 4 3 # Bowel Movements 1 Objective WDWN NAD reduced breath sounds bilaterally with improved wheeze [id number] without MRG NABS nontender no HSM no CCE nonfocal alert Current Medications Medications (Trade) Dose Ordered Sig/Wojciech Route PRN Reason Start Time Stop Time Status Last Admin Dose Admin Acetaminophen (Tylenol) 500 mg Q4H PRN ORAL Mild Pain/Temp > 100.5 10/13/17 10:45 11/12/17 10:44 Albuterol/ Ipratropium (Albuterol/ Ipratropium) 3 ml Q4HRT HHN 10/13/17 11:00 10/18/17 10:59 10/15/17 07:15 Heparin Sodium (Porcine) (Heparin 5000 units/ml) 5,000 units EVERY 12 HOURS SUBQ 10/13/17 11:00 11/12/17 10:59 Methylprednisolone Sodium Succinate (Solu-MEDROL) 60 mg EVERY 12 HOURS IVP 10/14/17 09:00 11/12/17 13:59 10/14/17 20:16 Pantoprazole (Protonix) 40 mg DAILY IVP 10/13/17 11:00 11/12/17 10:59 10/14/17 09:36 Salmeterol Xinafoate/ Fluticasone (Advair 250/50 Diskus) 1 puffs BID INH 10/14/17 11:30 11/13/17 11:29 10/14/17 20:19 Tiotropium [place] (Spiriva Inhaler) 1 puff DAILY INH 10/14/17 11:30 11/13/17 11:29 10/14/17 11:35 YUSRA ANDINO Oct 15, 2017 08:08
[2017-10-15] MEDS: Heparin 5000 units/ml inj SUBQ SCH (09:00)
[2017-10-15] MEDS: Advair 250/50 Inhaler - 14 dose INH SCH (09:16)
[2017-10-15] MEDS: Solu-MEDROL 125mg Inj IVP SCH (09:22)
[2017-10-15] MEDS: Pantoprazole Inj IVP SCH (09:22)
--- NOTE | 2017-10-16 10:27 | Discharge Summary ---
Discharge Summary Hospital Course Date of Admission Oct 13, 2017 at 06:46 Date of Discharge Oct 15, 2017 at 12:15 Admitting Diagnosis ASTHMA HPI Ayush Ruiz is a 37 year old male who was admitted on Oct 13, 2017 at 06: 46 for Asthma Hospital Course [id number] Discharge Discharge Disposition Patient was discharged to Home (01) Discharge Diagnoses: Sharlene Rivera NP Oct 16, 2017 10:27
--- NOTE | 2017-10-16 12:55 | Consultation ---
DATE OF CONSULTATION: 10/13/2017 NOTE: POOR AUDIO PULMONARY CONSULTATION CONSULTING PHYSICIAN: Bruce Moya M.D. REASON FOR CONSULTATION: Shortness of breath and asthma exacerbation. HISTORY OF PRESENT ILLNESS: This is a 37-year-old male with history of asthma exacerbation in the past. The patient presents with worsening shortness of breath and worsening chest tightness. The patient was given breathing treatments and did not improve. The patient denies any alcohol or drugs. Denied any smoking at present. The patient has dyspnea with significant exertion, worse with any movement. The patient presented, noted to have significant respiratory discomfort, respiratory distress. The patient with wheezing and did improve overall after several treatments. The patient's x-ray was negative with the exception of hyperinflation. PAST MEDICAL HISTORY: Notable for severe asthma, noncompliant, history of hypertension, and history of reflux. MEDICATIONS: Reviewed. ALLERGIES: Reviewed. SOCIAL HISTORY: The patient does have a history of smoking but quit last month. He is disabled at the present time. The patient is Full Code. REVIEW OF SYSTEMS: Otherwise negative with the exception of the above, cough, shortness of breath, wheezing, chest tightness, and congestion. PHYSICAL EXAMINATION: GENERAL: A well-developed male, somewhat short of breath, but appears to be slightly better than what was described here in the ER. VITAL SIGNS: Blood pressure 158/89, pulse 95, 98.2 18 98%. HEENT: Fairly negative. Extraocular movements are grossly intact. Oropharynx is moist. LUNGS: With reduced air entry overall with noted wheezes. CARDIAC: S1 and S2. Regular rate and rhythm without murmurs, rubs, or gallops. ABDOMEN: Soft, nontender, and nondistended. EXTREMITIES: No cyanosis, clubbing, or edema. NEUROLOGIC: Grossly nonfocal. LABORATORY DATA: Reviewed. CBC appears to be fairly normal. Electrolytes fairly normal. The urine toxicology screen is essentially negative. The patient's chest x-ray with just hyperinflation. IMPRESSION: 1. Asthma with exacerbation. 2. Shortness of breath. 3. Respiratory insufficiency. 4. Acute bronchospasm. RECOMMENDATION: Supportive care. Nebulized therapy on a routine basis. DVT prophylaxis and Solu-Medrol and monitor for further changes. Continue home medications and maintain compliance. Bruce Moya M.D. DR: Antony JOB#: [id number] CC: NILTON
--- NOTE | 2017-10-16 18:15 | Discharge Summary ---
DATE OF ADMISSION: 10/13/2017 DATE OF DISCHARGE: 10/15/2017 ADMISSION DIAGNOSIS: Asthma exacerbation. DISCHARGE DIAGNOSIS: Asthma exacerbation. HOSPITAL COURSE: The patient is a pleasant male, admitted with complaints of asthma exacerbation. He failed to improve with oral steroids and respiratory treatments at home. He was admitted. He received intravenous Solu-Medrol. His chest x-ray was negative. Pulmonary consultation was obtained. After 48 hours, the patient's asthma was much improved. He will be discharged home on a steroid taper. He has been written prescriptions for rescue inhaler. He has been instructed to continue his regular asthma regimen. 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 Harlan Ye M.D. DR: NICOLASA JOB#: [id number] CC:
--- NOTE | 2017-10-17 00:45 | Discharge Summary 2 SIG ---
DATE OF ADMISSION: 10/13/2017 DATE OF DISCHARGE: 10/15/2017 TENSION MACHINE OPERATOR: Bruce Moya M.D. BRIEF HOSPITAL COURSE: The patient is a 37-year-old male with a known history of asthma and had several admissions for the last year for asthma exacerbation. He had two days of progressive shortness of breath. He has been taking inhalers and nebulizers as well as few doses of prednisone, however, failed to improve. He presented to emergency room wheezing and had shortness of breath. He was given breathing treatments, however, symptoms did not improve. He was then admitted for severe asthma exacerbation. WBC was 10 and hemoglobin was 15. Toxicology screen was negative. Chest x-ray was clear. He was started on IV steroids and around the clock respiratory treatments. Advair was added to his regimen. The patient is a good candidate for bronchial thermoplasty. Steroid was tapered down and the patient was eventually discharged home to follow up after discharge. FINAL DIAGNOSES: 1. Severe persistent asthma and exacerbation. 2. Smoking history. 3. Acute respiratory distress. DISPOSITION: The patient was discharged home. DISCHARGE MEDICATIONS: Refer to medication list. Followup with Dr. Moya in a week. Harlan Ye M.D. I have been assigned to dictate discharge summary on this account and I was not involved in the patient's management. Sharlene Rivera N.P. DR: MILVIA JOB#: [id number] CC:
== END 2017-10-15 12:15 | disposition home or self-care (01) | DRG 203 ==
LOC: EDBD 06:13 → EMR 06:36 → 4E 06:46 → EDBEDREQ 08:20
DX: J45.901 Unspecified asthma with (acute) exacerbation (principal); Z87.891 Personal history of nicotine dependence
CPT/HCPCS: 36415; 71045; 80048; 80307; 81001; 85025; 94640; 94664; J7620

== ENCOUNTER 2018-06-15 08:28 | Emergency (ER) | payer MEDICARE, MEDICAID ==
[~2018-06-15] VITALS: Ht 177.8 cm; Wt 80.3 kg
[~2018-06-15 08:28] MED LIST changes: +SPIRIVA18 MCG INH
[2018-06-15 09:01] VITALS: BP 131/82
--- NOTE | 2018-06-15 10:01 | Emergency Room Report ---
History of Present Illness General Chief Complaint: Upper Extremity Injury Source: Patient Present Illness HPI Patient states that yesterday he was lifting a heavy object and he states that he lost control of it and it bent his left thumb all the way backwards. He has pain and swelling at the base of his thumb and with range of motion of his thumb. He denies actual crushing or trauma. He has no other injuries or complaints. Allergies: Coded Allergies: No Known Allergies (Unverified , 05/14/16) Patient History Past Medical History: see triage record, HTN, asthma, psych hx - bipolar Past Surgical History: appy Social History: Denies: smoking, alcohol use, drug use Reviewed Nursing Documentation: PMH: Agreed; PSxH: Agreed Nursing Documentation-PMH Hx Cardiac Problems: Yes Hx Hypertension: Yes Hx Asthma: Yes Hx Cancer: No Hx Gastrointestinal Problems: Yes Hx Neurological Problems: No Review of Systems All Other Systems: negative except mentioned in HPI Physical Exam Vital Signs Date Time Temp Pulse Resp B/P (MAP) Pulse Ox O2 Delivery O2 Flow Rate FiO2 06/15/18 08:45 97.8 84 20 131/82 96 Room Air 97.9 Sp02 EP Interpretation: reviewed, normal General Appearance: no apparent distress, alert, GCS 15, non-toxic Head: normocephalic, atraumatic Eyes: bilateral eye normal inspection, bilateral eye PERRL ENT: hearing grossly normal, normal pharynx, no angioedema, normal voice Neck: normal inspection Respiratory: no respiratory distress, no retraction, no accessory muscle use, speaking full sentences Rectal: deferred Genitourinary: normal inspection, no CVA tenderness Musculoskeletal: back normal, gait/station normal, normal range of motion, swelling - L. thumb and L. hand with swelling and pain with ROM at the base of the L. thumb. Neurologic: alert, oriented x3, responsive, motor strength/tone normal, sensory intact, speech normal Psychiatric: judgement/insight normal, memory normal, mood/affect normal, no suicidal/homicidal ideation Skin: normal color, no rash, warm/dry, well hydrated Procedures Splinting Splinting : Consent: Verbal Location: L. wrist/hand Pre-Made Type: velcro Splint: thumb spica Pre-Proc Neuro Vasc Exam: normal Post-Proc Neuro Vasc Exam: normal Patient Tolerated: Well Complications: None Medical Decision Making Diagnostic Impression: Primary Impression: Left thumb sprain Additional Impression: MCP subluxation ER Course The patient has findings on exam concerning for a medial collateral ligament rupture of the MCP joint of the left thumb. The patient was placed in a thumb spica splint. I did contact the office of or so hand surgeon Dr. Gee Conley who will follow-up with this patient in his office. I will give the patient anti-inflammatories and I instructed him to follow-up closely with the orthopedic hand surgeon. Other X-Ray Diagnostic Results Other X-Ray Diagnostic Results : X-Ray ordered: L. hand # of Views/Limited Vs Complete: Complete Indication: Swelling EP Interpretation: Yes Interpretation: no fractures Impression: No acute disease Electronically Signed by: Mitch Last Vital Signs Date Time Temp Pulse Resp B/P (MAP) Pulse Ox O2 Delivery O2 Flow Rate FiO2 06/15/18 09:01 97.9 20 131/82 96 Room Air 97.9 06/15/18 08:45 84 Status: improved Disposition: HOME, SELF-CARE Condition: Improved Referrals: NON PHYSICIAN (PCP) Keira Hart DO Jun 15, 2018 10:01
[2018-06-15] MEDS ORDERED: IBUPROFEN800 MG ORAL ×2 (10:02→10:15)
[2018-06-15 10:56] VITALS: BP 129/77
--- NOTE | 2018-06-15 13:03 | Diagnostic Imaging Report ---
Indication: Traumatic pain of the left thumb Technique: 3 views of the left fingers Comparison: none Findings: On the AP view, there is suggestion of a double border of the lateral base of the first proximal phalanx, not confirmed on other views. No other evidence of acute fracture. No dislocations. The joint spaces are preserved. Impression: Double density at the lateral base of the first proximal phalanx, could represent a flange of normal bone but avulsion fracture also a possibility. Correlate with clinical findings Findings discussed by phone with Dr. Whitney in the emergency room at the time of interpretation
== END 2018-06-15 10:10 | disposition home or self-care (01) ==
LOC: EMR 09:33
DX: S63.642A Sprain of metacarpophalangeal joint of left thumb, initial encounter (principal); M79.645 Pain in left finger(s); I10 Essential (primary) hypertension; X58.XXXA Exposure to other specified factors, initial encounter; Y93.9 Activity, unspecified; Y92.9 Unspecified place or not applicable; Y99.9 Unspecified external cause status
CPT/HCPCS: 29125; 99283

== ENCOUNTER 2018-11-15 09:45 | Emergency (ER) | payer MEDICARE, MEDICAID ==
[~2018-11-15] VITALS: Ht 177.8 cm; Wt 80.3 kg
[2018-11-15] MEDS ORDERED: Solu-MEDROL 125mg Inj IVP ONE (10:00)
[2018-11-15] MEDS: Albuterol ud Inhalation HHN SCH ×3 (10:09→10:40)
[2018-11-15] MEDS: Ipratropium 0.02% Inh Soln 2.5ml UD HHN SCH ×3 (10:09→10:40)
[2018-11-15 10:10] VITALS: BP 148/97
--- NOTE | 2018-11-15 10:15 | NUR ---
ED Nurse Note: patient was brought by family member, complaining of SOB, and headache for 3 days. AAO x 4, VSS at this time. skin is dry, intact, warm to touch. Patient's O2 sat is 99%, nonlabored breathing.
--- NOTE | 2018-11-15 10:20 | NUR ---
ED Nurse Note: RT at bed side
--- NOTE | 2018-11-15 10:22 | Emergency Room Report ---
History of Present Illness General Chief Complaint: Headache Source: Patient Present Illness HPI Patient has a history of multiple admissions for asthma. Patient presents emergency department today complaining cough congestion shortness breath worse over last 4 days. He also complains of sinus congestion and a severe headache. States that his headaches worsen his usual headaches. It is different is typical headaches. Denies any fever associated with headaches. He does complain sinus congestion. States that his eyes feel swollen. Denies any visual changes. No other complaint or noted patient was noted to be highly severe.No other modifying factors. No other associated signs and symptoms. No other complaints were noted. Allergies: Coded Allergies: No Known Allergies (Unverified , 11/15/18) Patient History Past Medical History: HTN, asthma Past Surgical History: none Pertinent Family History: none Social History: Denies: smoking, alcohol use, drug use Reviewed Nursing Documentation: PMH: Agreed; PSxH: Agreed Nursing Documentation-PMH Past Medical History: No History, Except For Hx Cardiac Problems: No Hx Hypertension: Yes Hx Asthma: Yes Hx Cancer: No Hx Gastrointestinal Problems: No Hx Neurological Problems: No Review of Systems All Other Systems: negative except mentioned in HPI Physical Exam Vital Signs Date Time Temp Pulse Resp B/P (MAP) Pulse Ox O2 Delivery O2 Flow Rate FiO2 11/15/18 09:50 98.2 91 12 159/97 95 Room Air 11/15/18 10:00 21 Sp02 EP Interpretation: reviewed, normal General Appearance: alert, mild distress Head: atraumatic Eyes: bilateral eye normal inspection ENT: normal ENT inspection, hearing grossly normal, normal voice, other - Sinus tenderness to percussion Neck: normal inspection, full range of motion, supple, no bony tend Respiratory: respiratory distress, decreased breath sounds, accessory muscle use, wheezing, expiration, inspiration Cardiovascular #1: regular rate, rhythm, no edema Gastrointestinal: normal inspection, normal bowel sounds, non tender, soft, no guarding, no hernia Genitourinary: no CVA tenderness Musculoskeletal: normal inspection, back normal, normal range of motion Neurologic: normal inspection, alert, responsive, speech normal Psychiatric: normal inspection, judgement/insight normal, mood/affect normal Skin: normal inspection, normal color, no rash Medical Decision Making Diagnostic Impression: Primary Impression: Sinus pain Additional Impression: Asthma ER Course Patient presents emergency department today complaining of sinus pain. Patient is also complaining of a headache but the headache was different than his usual headache. Because of the CT of the brain was obtained. Differential diagnosis included cranial injury mass sinus infection just name a few. Patient was also very short of breath. Chest x-ray was negative.Given the severity of the patient's presentation I felt this is a highly complex patient. This patient required extensive workup. Patient laboratory workup was not impressive chest ray was normal. Head CT however show evidence of a lipoma on the right eye. Patient was advised follow-up with ophthalmology. Patient was given copies of the x-ray report as well as CT head and laboratory workup. Patient was given antibiotics.Patient is advised to follow up with primary doctor in 2-3 days and return the emergency room for any worsening symptoms and as needed. Labs Test 11/15/18 10:20 White Blood Count 7.5 K/UL (4.8-10.8) Red Blood Count 4.77 M/UL (4.70-6.10) Hemoglobin 15.1 G/DL (14.2-18.0) Hematocrit 44.3 % (42.0-52.0) Mean Corpuscular Volume 93 FL (80-99) Mean Corpuscular Hemoglobin 31.5 PG (27.0-31.0) Mean Corpuscular Hemoglobin Concent 34.0 G/DL (32.0-36.0) Red Cell Distribution Width 11.2 % (11.6-14.8) Platelet Count 265 K/UL (150-450) Mean Platelet Volume 8.1 FL (6.5-10.1) Neutrophils (%) (Auto) 67.5 % (45.0-75.0) Lymphocytes (%) (Auto) 19.2 % (20.0-45.0) Monocytes (%) (Auto) 7.3 % (1.0-10.0) Eosinophils (%) (Auto) 5.1 % (0.0-3.0) Basophils (%) (Auto) 0.9 % (0.0-2.0) Sodium Level 132 MMOL/L (136-145) Potassium Level 3.4 MMOL/L (3.5-5.1) Chloride Level 96 MMOL/L (98-107) Carbon Dioxide Level 27 MMOL/L (21-32) Anion Gap 10 mmol/L (5-15) Blood Urea Nitrogen 8 mg/dL (7-18) Creatinine 1.4 MG/DL (0.55-1.30) Estimat Glomerular Filtration Rate > 60 mL/min (>60) Glucose Level 104 MG/DL (74-106) Calcium Level 9.5 MG/DL (8.5-10.1) Total Bilirubin 1.2 MG/DL (0.2-1.0) Direct Bilirubin 0.2 MG/DL (0.0-0.3) Aspartate Amino Transf (AST/SGOT) 29 U/L (15-37) Alanine Aminotransferase (ALT/SGPT) 44 U/L (12-78) Alkaline Phosphatase 88 U/L (46-116) Total Protein 8.0 G/DL (6.4-8.2) Albumin 4.4 G/DL (3.4-5.0) Globulin 3.6 g/dL Albumin/Globulin Ratio 1.2 (1.0-2.7) EKG Diagnostic Results Rate: normal Rhythm: NSR ST Segments: no acute changes Rhythm Strip Diag. 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 Sinus disease. Last Vital Signs Date Time Temp Pulse Resp B/P (MAP) Pulse Ox O2 Delivery O2 Flow Rate FiO2 11/15/18 10:15 80 18 99 Room Air 21 11/15/18 09:50 98.2 159/97 Status: improved Disposition: HOME, SELF-CARE Condition: Stable Scripts Azithromycin* (ZITHROMAX*) 250 Mg Tablet 250 MG ORAL DAILY, #6 TAB 0 Refills Take two tables once daily for 1 day, then one tablet once daily for 4 days. Prov: Arnaldo Carroll MD 11/15/18 Albuterol Sulfate* (ALBUTEROL SULFATE HHN*) 2.5 Mg/3 Ml Vial.neb 3 ML INH Q6H PRN for Shortness of Breath, #30 EA 0 Refills Prov: Arnaldo Carroll MD 11/15/18 Prednisone* (PREDNISONE*) 20 Mg Tablet 40 MG ORAL DAILY, #10 TAB Prov: Arnaldo Carroll MD 11/15/18 Referrals: NON PHYSICIAN (PCP) Arnaldo Carroll MD Nov 15, 2018 10:22
[2018-11-15 10:44] LABS: BASOPHILS % (AUTO) 0.9 % (0.0-2.0); EOSINOPHILS % (AUTO) 5.1 % (0.0-3.0); HEMATOCRIT 44.3 % (42.0-52.0); HEMOGLOBIN 15.1 G/DL (14.2-18.0); LYMPHOCYTES % (AUTO) 19.2 % (20.0-45.0); MEAN CORPUSCULAR VOLUME 93 FL (80-99); MONOCYTES % (AUTO) 7.3 % (1.0-10.0); NEUTROPHILS % (AUTO) 67.5 % (45.0-75.0); PLATELET COUNT 265 K/UL (150-450); RED BLOOD COUNT 4.77 M/UL (4.70-6.10); RED CELL DISTRIBUTION WIDTH 11.2 % (11.6-14.8); WHITE BLOOD COUNT 7.5 K/UL (4.8-10.8)
[2018-11-15 10:55] LABS: ANION GAP 10 mmol/L (5-15); BLOOD UREA NITROGEN 8 mg/dL (7-18); CALCIUM 9.5 MG/DL (8.5-10.1); CARBON DIOXIDE 27 MMOL/L (21-32); CHLORIDE 96 MMOL/L (98-107); CREATININE 1.4 MG/DL (0.55-1.30); POTASSIUM 3.4 MMOL/L (3.5-5.1); SODIUM 132 MMOL/L (136-145)
--- NOTE | 2018-11-15 10:55 | NUR ---
ED Nurse Note: patient went down for CT
[2018-11-15 11:00] LABS: ALANINE AMINOTRANSFERASE 44 U/L (12-78); ALBUMIN 4.4 G/DL (3.4-5.0); ALBUMIN/GLOBULIN RATIO 1.2 (1.0-2.7); ALKALINE PHOSPHATASE 88 U/L (46-116); ASPARTATE AMINO TRANSFERASE 29 U/L (15-37); BILIRUBIN,DIRECT 0.2 MG/DL (0.0-0.3); BILIRUBIN,TOTAL 1.2 MG/DL (0.2-1.0)
--- NOTE | 2018-11-15 11:05 | NUR ---
ED Nurse Note: patient is back from CT, no acute disstress, VSS at this time.
--- NOTE | 2018-11-15 11:26 | Diagnostic Imaging Report ---
Indications: Severe headache Technique: Spiral acquisitions obtained through the brain. Angled axial and coronal 5 x 5 mm slices were reconstructed. Total dose length product 1375.21 mGycm. CTDI vol(s) 70.38 mGy. Dose reduction achieved using automated exposure control Comparison: None. Findings: No acute intracranial hemorrhage nor edema. No mass effect nor midline shift. Normal-sized ventricles and extra axial CSF spaces. Normal dangelo-white differentiation. Intact calvarium. There is ethmoid and sphenoid sinus disease. There is unusual finding of a fat-containing lesion, presumably a lipoma, measuring 15 x 5 mm and containing central calcification, lateral an immediately adjacent to the right optic globe. This indents the lateral aspect very slightly. 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 Sinus disease The CT scanner at [facility] is accredited by the [employer] and the scans are performed using protocols designed to limit radiation exposure to as low as reasonably achievable to attain images of sufficient resolution adequate for diagnostic evaluation.
[2018-11-15] MEDS ORDERED: ALBUTEROL2.5 MG/3 M INH (11:49)
[2018-11-15] MEDS ORDERED: PREDNISONE20 MG ORAL (11:49)
[2018-11-15] MEDS ORDERED: ZITHROMAX250 MG ORAL (11:49)
[2018-11-15 12:00] VITALS: BP 138/75
--- NOTE | 2018-11-15 12:00 | NUR ---
ED Nurse Note: Pt cleared by health care Provider for discharge. DC instructions/prescription was given and explained to pt and verbalized understanding of teachings. All medical deviecs such as ID band and IV removed. Pt is AAO x4, ambulatory and left with all personal belongings.
--- NOTE | 2018-11-15 15:16 | Diagnostic Imaging Report ---
Indication: Cough Technique: One view of the chest Comparison: none Findings: Lungs and pleural spaces are clear. Heart size is normal Impression: No acute process This agrees with the preliminary interpretation provided by the emergency room physician
--- NOTE | 2018-11-16 13:29 | Cardiology Report ---
APPROVED REPORT EKG Measurement Heart [id number] Normal sinus rhythm with sinus arrhythmia Normal ECG
== END 2018-11-15 12:09 | disposition home or self-care (01) ==
LOC: EMR 10:00
DX: J34.89 Other specified disorders of nose and nasal sinuses (principal); J45.909 Unspecified asthma, uncomplicated; R51 Headache; I10 Essential (primary) hypertension
CPT/HCPCS: 36415; 70450; 71045; 80053; 82248; 85025; 93005; 94640; 94664; 96374; 99284; J2930

== ENCOUNTER 2019-07-27 09:44 | Emergency (ER) | payer MEDICARE, MEDICAID ==
[~2019-07-27] VITALS: Ht 177.8 cm; Wt 80.3 kg
[~2019-07-27 09:44] MED LIST changes: +ALBUTEROL2.5 MG/3 M INH; +ZITHROMAX250 MG ORAL
[2019-07-27 09:56] VITALS: BP 175/115
--- NOTE | 2019-07-27 09:56 | NUR ---
ED Nurse Note: Patient walked in to ER due to asthma attack x 2 days. As per pt, he took his inhaler but it doesnt alleviate the symptoms. Patient is an active smoker. Wheezes noted, O2 sat 96% RA. No SOB. Breathing even and unlabored. VSS.
--- NOTE | 2019-07-27 09:57 | NUR ---
ED Nurse Note: DR CASTREJON NOTIFIED OF WHEEZING.
--- NOTE | 2019-07-27 10:01 | Emergency Room Report ---
History of Present Illness General Chief Complaint: Asthma Source: Patient Present Illness HPI Disclaimer: Please note that this report is being documented using [employer] technology. This can lead to erroneous entry secondary to incorrect interpretation by the dictating instrument. HPI: 39-year-old male with history of asthma presents for shortness of breath and cough. Symptoms present for several days. Notes recent URI with nasal congestion, postnasal drip, nonproductive cough but denies fever. This morning he woke progressively short of breath. Has been using his Ventolin inhaler and breathing treatments at home without significant improvement. Reports continued cough. Denies abdominal pain, chest pain, vomiting, diarrhea or other symptoms. No known sick contacts. PMH: Asthma PSH: Reviewed in chart Allergies: Denies Social Hx: Smoker Allergies: Coded Allergies: No Known Allergies (Unverified , 11/15/18) Nursing Documentation-PMH Past Medical History: No History, Except For Hx Cardiac Problems: No Hx Hypertension: Yes Hx Asthma: Yes Hx Cancer: No Hx Gastrointestinal Problems: No Hx Neurological Problems: No Review of Systems All Other Systems: negative except mentioned in HPI Physical Exam Vital Signs Date Time Temp Pulse Resp B/P (MAP) Pulse Ox O2 Delivery O2 Flow Rate FiO2 07/27/19 09:52 98.4 91 21 175/115 (135) 96 Room Air General: Awake and alert, no acute distress HEENT: NC/AT. EOMI. Cardiovascular: RRR. S1 and S2 normal. No murmur appreciated Resp: No increase in work of breathing and tachypnea. Bilateral inspiratory and expiratory wheezes. No stridor. Skin: Intact. No abrasions, laceration or rash over the exposed skin MSK: Normal tone and bulk. Moving all extremities. No obvious deformity. Neuro: Awake and alert. Mentating appropriately. Medical Decision Making Diagnostic Impression: Primary Impression: Upper respiratory infection Additional Impression: Asthma ER Course 39-year-old male with history of asthma presents for evaluation of shortness of breath in the setting of recent URI symptoms. Likely, this is an asthma exacerbation caused by recent viral syndrome however will obtain a chest x-ray to rule out pneumonia. He has bilateral wheezing but no stridor with only mild increase in work of breathing. We will give him steroids and DuoNeb treatments. Chest X-Ray Diagnostic Results Chest X-Ray Diagnostic Results : # of Views/Limited/Complete: 1 View Indication: Shortness of Breath EP Interpretation: Yes Interpretation: no consolidation, no effusion, no pneumothorax, no acute cardiopulmonary disease Impression: No acute disease Electronically Signed by: Electronically signed by Dr. Isaac Dia Last Vital Signs Date Time Temp Pulse Resp B/P (MAP) Pulse Ox O2 Delivery O2 Flow Rate FiO2 07/27/19 09:52 98.4 91 21 175/115 (135) 96 Room Air Reevaluation Impression No evidence of infiltrate on chest x-ray. The patient symptomatically is greatly improved after receiving duo nebs and oral steroids. We will continue on a 5-day steroid regimen and I refilled the patient's nebulizers, inhalers and also provided him with Mucinex to treat his congestion and cough. He will follow-up with his PMD as an outpatient. We discussed reasons to return to the emergency department. He understands and agrees with this treatment plan. Disposition: HOME, SELF-CARE Condition: Improved Scripts Guaifenesin (Mucinex) 600 Mg Tab.er.12h 600 MG PO BID for 7 Days, #20 TAB Prov: Isaac Dia MD 07/27/19 Albuterol Sulfate* (ALBUTEROL SULFATE HHN*) 2.5 Mg/3 Ml Vial.neb 3 ML INH Q6H PRN for Shortness of Breath, #30 EA 0 Refills Prov: Isaac Dia MD 07/27/19 Prednisone* (PREDNISONE*) 20 Mg Tablet 40 MG ORAL DAILY, #10 TAB Prov: Isaac Dia MD 07/27/19 Albuterol Sulfate* (ALBUTEROL SULFATE MDI*) 8.5 Gm Hfa.aer.ad 2 PUFF INH Q4H PRN for cough/wheezing, #1 EA 0 Refills Prov: Isaac Dia MD 07/27/19 Isaac Dia MD Jul 27, 2019 10:01
--- NOTE | 2019-07-27 10:05 | NUR ---
ED Nurse Note: RT at bedside for breathing tx.
[2019-07-27] MEDS: Albuterol/Ipratropium 3ml neb HHN SCH ×2 (10:11→10:12)
--- NOTE | 2019-07-27 10:27 | NUR ---
ED Nurse Note: Xray at bedside.
[2019-07-27] MEDS ORDERED: MUCINEX600 MG PO (11:09)
[2019-07-27] MEDS ORDERED: ALBUTEROL SULF8.5 GM INH (11:09)
[2019-07-27] MEDS ORDERED: ALBUTEROL2.5 MG/3 M INH (11:09)
[2019-07-27] MEDS ORDERED: PREDNISONE20 MG ORAL (11:09)
[2019-07-27 11:16] VITALS: BP 158/60
--- NOTE | 2019-07-27 11:16 | NUR ---
ER DISCHARGE NOTE: Patient is cleared to be discharged per ERMD, pt is aox4, on room air, with stable vital signs. pt was given dc and prescription instructions, pt was able to verbalize understanding, pt id band removed. pt is able to ambulate with steady gait. pt took all belongings.
--- NOTE | 2019-07-27 11:55 | Diagnostic Imaging Report ---
Indication: Dyspnea Comparison: 11/15/2018 A single view chest radiograph was obtained. Findings: Cardiomediastinal appearance is within normal limits for age. The lungs are clear. Pulmonary vascularity is appropriate. The diaphragmatic contour is smooth and costophrenic angles are sharp. No pleural effusions are identified. The bones are unremarkable. Impression: No acute findings
== END 2019-07-27 11:16 | disposition home or self-care (01) ==
LOC: EMR 10:15
DX: J06.9 Acute upper respiratory infection, unspecified (principal); J45.909 Unspecified asthma, uncomplicated; I10 Essential (primary) hypertension
CPT/HCPCS: 71045; 94640; 94664; 99284; J7512; J7620

== ENCOUNTER 2020-02-09 17:53 | Emergency (ER) | payer MEDICARE, MEDICAID ==
[~2020-02-09] VITALS: Ht 177.8 cm; Wt 80.3 kg
[~2020-02-09 17:53] MED LIST changes: +MUCINEX600 MG PO
[2020-02-09 18:07] VITALS: BP 147/89
--- NOTE | 2020-02-09 18:09 | NUR ---
ED Nurse Note: Pt from home walked in due to right side pain x 3 days. Denies any recent injury or trauma. no reports of burning sensation upon urination. AAO x4 and ambulatory.
--- NOTE | 2020-02-09 18:22 | NUR ---
ED Nurse Note: Urine specimen sent and radiology wuth the pt for xray.
--- NOTE | 2020-02-09 19:08 | Emergency Room Report ---
History of Present Illness General Chief Complaint: Lower Back Pain or Injury Source: Patient Present Illness HPI 39 YO male presents to the ED c/o 06/23 in severity Burning pain, swelling, tenderness to the right posterior-lateral aspect of the rib cage x 3 days. Pt. denies trauma or fall. he denies cough. He denies fevers or chills. He denies rashes. Pt. denies hx of chicken pox. Pt. denies bruising. Pt. reports pain exacerbated with movement and very light palpation. Pt. denies significant PMHx other than asthma. He denies wheezing. No other aggravating or relieving factors at this time. Pt. denies SOB, CP or palpitations. Allergies: Coded Allergies: No Known Allergies (Unverified , 11/15/18) COVID-19 Screening Contact w/high risk pt: No Recent Travel to affected area: No Experienced COVID-19 symptoms?: No COVID-19 Testing performed EDITORIAL CARTOONIST: No Patient History Past Medical History: see triage record, asthma Past Surgical History: none Pertinent Family History: none Reviewed Nursing Documentation: PMH: Agreed; PSxH: Agreed Nursing Documentation-PMH Past Medical History: No History, Except For Hx Cardiac Problems: No Hx Hypertension: Yes Hx Asthma: Yes Hx Cancer: No Hx Gastrointestinal Problems: No Hx Neurological Problems: No Review of Systems All Other Systems: negative except mentioned in HPI Physical Exam Vital Signs Date Time Temp Pulse Resp B/P (MAP) Pulse Ox O2 Delivery O2 Flow Rate FiO2 02/09/20 17:59 97.9 77 18 147/89 (108) 95 Room Air Sp02 EP Interpretation: reviewed, normal General Appearance: no apparent distress, alert, GCS 15, non-toxic Head: normocephalic, atraumatic Eyes: bilateral eye normal inspection, bilateral eye PERRL ENT: hearing grossly normal, normal voice Neck: full range of motion Respiratory: lungs clear, normal breath sounds, no respiratory distress, no accessory muscle use, no wheezing, speaking full sentences, other - erythema and ST swelling to the posteriolateral aspect of the right upper ribs. no rash Cardiovascular #1: regular rate, rhythm, normal capillary refill Gastrointestinal: non tender, soft Genitourinary: normal inspection, no CVA tenderness Musculoskeletal: back normal, normal range of motion, gait/station normal, non- tender Neurologic: alert, motor strength/tone normal, oriented x3, sensory intact, responsive, speech normal Psychiatric: judgement/insight normal Skin: no rash, other - erythema, warmth and swelling to the posteriolateral aspect of ST overlying the right upper ribs. Medical Decision Making PA Attestation Dr. Dia is my supervising Physician whom patient management has been discussed with. Diagnostic Impression: Primary Impression: Cellulitis Qualified Codes: L03.818 - Cellulitis of other sites Additional Impression: Chest wall pain ER Course 39 YO male presents to the ED c/o 06/23 in severity Burning pain, swelling, tenderness to the right posterior-lateral aspect of the rib cage x 3 days. Pt. denies trauma or fall. he denies cough. He denies fevers or chills. He denies rashes. Pt. denies hx of chicken pox. Pt. denies bruising. Pt. reports pain exacerbated with movement and very light palpation. Pt. denies significant PMHx other than asthma. He denies wheezing. No other aggravating or relieving factors at this time. Pt. denies SOB, CP or palpitations. Ddx considered but are not limited to cellulitis, Necrotizing fasciitis, allergic reaction, burn, dermatitis, fracture, PNA, shingles, costochondritis, muscle strain, asthma exacerbation just to name a few. Vital signs: are WNL, pt. is afebrile H&PE are most consistent with Cellulitis vs. muscle strain ORDERS: -CXR: WNL ED INTERVENTIONS: -Lidoderm TP DISCHARGE: At this time pt. is stable for d/c to home. Will provide printed patient care instructions, and any necessary prescriptions. Care plan and follow up instructions have been discussed with the patient prior to discharge. Chest X-Ray Diagnostic Results Chest X-Ray Diagnostic Results : Chest X-Ray Ordered: Yes # of Views/Limited/Complete: 1 View Indication: Chest Pain EP Interpretation: Yes CAROLINE Xray: Interpretation reviewed, by supervising MD, and agrees with findings. Interpretation: no consolidation, no effusion, no pneumothorax, no acute cardiopulmonary disease Impression: No acute disease Electronically Signed by: Estela Mcdonald PA-C Last Vital Signs Date Time Temp Pulse Resp B/P (MAP) Pulse Ox O2 Delivery O2 Flow Rate FiO2 02/09/20 18:07 97.9 18 147/89 95 Room Air 02/09/20 17:59 77 Disposition: HOME, SELF-CARE Condition: Stable Scripts Ibuprofen* (MOTRIN*) 400 Mg Tablet 400 MG ORAL THREE TIMES A DAY, #30 TAB 0 Refills Prov: Estela Mcdonald 02/09/20 Lidocaine Patch* (Lidoderm Patch*) 1 Each Adh..patch 1 PATCH TOPIC DAILY, #30 PATCH 0 Refills Patch(es) may remain in place for up to 12 hours in any 24-hour period. Prov: Estela Mcdonald 02/09/20 Cephalexin* (KEFLEX*) 500 Mg Capsule 500 MG ORAL EVERY 12 HOURS for 7 Days, #14 CAP 0 Refills Prov: Estela Mcdonald 02/09/20 Referrals: NON PHYSICIAN (PCP) Patient Instructions: Cellulitis, [id number], Medical Screening Exam Additional Instructions: Take medications as directed. Follow up with a Primary Care Provider in 3-5 days, even if your symptoms have resolved. --Please review list of primary care clinics, if you do not already have a primary care provider Return sooner to ED if new symptoms occur, or current symptoms become worse. - Please note that this Emergency Department Report was dictated using [employer] dyer technology software, occasionally this can lead to erroneous entry secondary to interpretation by the dictation equipment. Estela Mcdonald February 09, 2020 19:08
[2020-02-09] MEDS ORDERED: IBUPROFEN400 MG ORAL (19:09)
[2020-02-09] MEDS ORDERED: LIDODERM700 M1 TOPIC (19:09)
[2020-02-09] MEDS ORDERED: CEPHALEXIN500 MG ORAL (19:09)
--- NOTE | 2020-02-09 19:11 | NUR ---
HAND-OFF: Report given to alida [place].
[2020-02-09 19:19] LABS: APPEARANCE,URINE CLEAR; BILIRUBIN, URINE NEGATIVE (NEGATIVE); COLOR,URINE PALE YELLOW; GLUCOSE, URINE (UA) NEGATIVE (NEGATIVE); KETONES,URINE NEGATIVE (NEGATIVE); LEUKOCYTE ESTERASE ,URINE 2+ (NEGATIVE); NITRITE,URINE NEGATIVE (NEGATIVE); PH,URINE 6 (4.5-8.0); PROTEIN,URINE NEGATIVE (NEGATIVE); UROBILINOGEN,URINE NORMAL MG/DL (0.0-1.0)
[2020-02-09 20:05] VITALS: BP 140/85
--- NOTE | 2020-02-10 10:50 | Diagnostic Imaging Report ---
Indication: Chest pain Technique: One view of the chest Comparison: 07/27/2019 Findings: Lungs and pleural spaces are clear. Heart size is normal. Impression: No acute process
== END 2020-02-09 20:05 | disposition home or self-care (01) ==
LOC: EMR 18:17
DX: L03.818 Cellulitis of other sites (principal); R07.89 Other chest pain; I10 Essential (primary) hypertension; J45.909 Unspecified asthma, uncomplicated
CPT/HCPCS: 71045; 81001; 99283

== ENCOUNTER 2020-05-31 10:41 | Emergency (ER) | payer MEDICARE, MEDICAID ==
[~2020-05-31] VITALS: Ht 177.8 cm; Wt 80.3 kg
[~2020-05-31 10:41] MED LIST changes: +CEPHALEXIN500 MG ORAL; +IBUPROFEN400 MG ORAL; +LIDODERM700 M1 TOPIC
[2020-05-31 10:59] VITALS: BP 126/70
[2020-05-31] MEDS ORDERED: Ketorolac 30mg Inj IM ONE (11:00)
[2020-05-31] MEDS ORDERED: Acetaminophen 500mg (ES) tab ORAL ONE (11:00)
--- NOTE | 2020-05-31 11:12 | Emergency Room Report ---
History of Present Illness General Chief Complaint: Pain Source: Patient Present Illness HPI 40-year-old male, history of bunion right foot, endorses sharp pain that started over the past 2 days patient reports that he has intermittent bunion pain that self resolves, endorses sharp pain worse with touching the right great toe, alleviated by not touching the toe, severity is moderate, intermittent no fevers no chills patient presents for evaluation Allergies: Coded Allergies: No Known Allergies (Unverified , 11/15/18) COVID-19 Screening Contact w/high risk pt: No Recent Travel to affected area: No Experienced COVID-19 symptoms?: No COVID-19 Testing performed PRINCIPAL TRAINER: No Patient History Past Medical History: see triage record Reviewed Nursing Documentation: PMH: Agreed; PSxH: Agreed Nursing Documentation-PMH Past Medical History: No History, Except For Hx Cardiac Problems: No Hx Hypertension: Yes Hx Asthma: Yes Hx Cancer: No Hx Gastrointestinal Problems: No Hx Neurological Problems: No Review of Systems All Other Systems: negative except mentioned in HPI Physical Exam Vital Signs Date Time Temp Pulse Resp B/P (MAP) Pulse Ox O2 Delivery O2 Flow Rate FiO2 05/31/20 10:47 97.5 90 15 126/70 (88) 98 Room Air General Appearance: well appearing, no apparent distress Head: normocephalic, atraumatic ENT: hearing grossly normal, normal voice Neck: full range of motion, supple Respiratory: no respiratory distress, speaking full sentences Musculoskeletal: other - Right lower extremity: 2+ PT DP fires EHL, tenderness palpation along the first metatarsal Neurologic: alert, normal gait Psychiatric: mood/affect normal Skin: no rash Medical Decision Making Diagnostic Impression: Primary Impression: Toe pain, right ER Course 40-year-old male with intact neurovascular exam of the right lower extremity, tenderness to palpation first metatarsal, with a bunion formation, patient given Toradol, patient's pain significantly improved patient did not want any outpatient prescriptions disposition home with return precautions Procedure: XRAY Foot Complete L EXAM: X-RAY XRAY Foot Complete L CLINICAL HISTORY: Foot pain. COMPARISON: None FINDINGS: Total of 3 views of the left foot were obtained. Alignment is anatomic. There is no fracture, bony lesions or erosions. Moderate degenerative changes noted at the first metatarsophalangeal joint. The other joint spaces appear well-maintained. Soft tissues normal. IMPRESSION: DEGENERATIVE CHANGES AT THE FIRST MTP JOINT. NO ACUTE BONY ABNORMALITY. Dictated By: Rakesh Orourke MD Electronically Signed By:Rakesh Orourke MD Signed Date/Time05/31/20 1322 CC: Jorge Martins [id number] 0 Last Vital Signs Date Time Temp Pulse Resp B/P (MAP) Pulse Ox O2 Delivery O2 Flow Rate FiO2 05/31/20 10:59 97.5 76 15 126/70 98 Room Air Disposition: HOME, SELF-CARE Condition: Stable Referrals: Orthopedic Urgent Care Patient Instructions: Bunion (Hallux Valgus) Additional Instructions: The patient was provided with discharge instructions, notified to follow-up with a primary care doctor and or specialist in the next 24-48 hours, and to return to the ED if they have worsening of their symptoms. Please note that this report is being documented using [employer] technology. This can lead to erroneous entry secondary to incorrect interpretation by the dictating instrument. Jorge Martins MD May 31, 2020 11:12
[2020-05-31 12:52] VITALS: BP 124/72
--- NOTE | 2020-05-31 13:27 | Diagnostic Imaging Report ---
EXAM: X-RAY XRAY Foot Complete L CLINICAL HISTORY: Foot pain. COMPARISON: None FINDINGS: Total of 3 views of the left foot were obtained. Alignment is anatomic. There is no fracture, bony lesions or erosions. Moderate degenerative changes noted at the first metatarsophalangeal joint. The other joint spaces appear well-maintained. Soft tissues normal. IMPRESSION: DEGENERATIVE CHANGES AT THE FIRST MTP JOINT. NO ACUTE BONY ABNORMALITY.
== END 2020-05-31 12:52 | disposition home or self-care (01) ==
LOC: EMR 11:16
DX: M79.674 Pain in right toe(s) (principal); I10 Essential (primary) hypertension; J45.909 Unspecified asthma, uncomplicated; Z79.51 Long term (current) use of inhaled steroids; Z79.899 Other long term (current) drug therapy
CPT/HCPCS: 73630; 96372; 99283; J1885